=== PATIENT | female | born 1945 | race Caucasian/White ===

== ENCOUNTER 2020-03-10 10:37 | Outpatient (CLI) | payer OTHER, SELFPAY ==
--- NOTE | ~2020-03-10 | MM_ITS ---
EXAMINATION: MM screening [facility] BI w cathy HISTORY: Screening mammogram TECHNIQUE: Craniocaudal and mediolateral oblique 3-D tomosynthesis images were obtained and synthetic 2-D images were generated. CAD analysis was submitted and interpreted. COMPARISON: 01/02/2019, 12/25/2018, 12/07/2017, 12/05/2016 BREAST PARENCHYMAL COMPOSITION: The breasts are heterogeneously dense, which may obscure small masses . FINDINGS: There is no evidence of suspicious mass, calcification, or architectural distortion to sugg est malignancy in either breast. There has been no suspicious interval change. IMPRESSION: 1. No mammographic evidence of malignancy. 2. Recommend routine screening mammography in one year. BI-RADS Category 1: Negative Reviewed, dictated and finalized at location A.
== END 2020-03-10 10:38 | disposition home or self-care (01) ==
LOC: ANHIMG 10:39
PROVIDERS: PCP Family Medicine; Visit Provider Family Medicine
DX: Z12.31 Encounter for screening mammogram for malignant neoplasm of breast (principal)
CPT/HCPCS: 77063; 77067

== ENCOUNTER 2020-06-25 08:50 | Outpatient (CLI) | payer OTHER, SELFPAY ==
--- NOTE | ~2020-06-25 | DEXA_ITS ---
Bone Density Report Name: Zara Martinez Age: 74 Sex: Female Ethnicity: White Date of : 1945 Indication: postmenopausal; hysterectomy; Referring Provider: VAMSI MARTINI Study: Bone densitometry was performed. Exam Date: June 25, 2020 Accession number: [id number] Bone Density: Region BMD T-score Z-score Classification AP Spine (L1, L4) 0.920 -1.1 1.4 Osteopenia Femoral Neck (Left) 0.593 -2.3 -0.2 Osteopenia Total Hip (Left) 0.781 -1.3 0.5 Osteopenia Total Hip Bilateral Avg 0.738 -1.7 0.2 Osteopenia Femoral Neck (Right) 0.590 -2.3 -0.2 Osteopenia Total Hip (Right) 0.694 -2.0 -0.2 Osteopenia World Health Organization criteria for BMD impression classify patients as: Normal (T-score at or above -1.0), Osteopenia (T-score between -1.0 and -2.5), or Osteoporosis (T-score at or below -2.5). 10-year Fracture Risk(1): Major Osteoporotic Fracture 15% Hip Fracture 4.3% Reported Risk Factors: [place] (), Neck BMD=0.590, BMI=26.4 (1) FRAX(R) Version 3.08. Fracture probability calculated for an untreated patient. Fracture probability may be lower if the patient has received treatment. Clinical Information Provided by Patient: Has used the following medications: Calcium Has the following medical conditions: Hysterectomy Patient maximum height was 67 Menopause Age: 28 No regular weight bearing exercise Does not regularly consume dairy products Drinks caffeinated beverages Onset of menses at age 15 Number of children 1 Impression: The patient has low bone mass, based on the Left Femoral Neck T-score. The patient has an estimated ten-year risk of hip fracture of 4.3% and an estimated ten-year risk of major fracture of 15%, based on the WHO FRAX algorithm. Discussion: BONE DENSITY IS LOW AT ONE OR MORE SKELETAL SITES. THE PATIENT'S BMD AND CLINICAL RISK FACTORS CONTRIBUTE TO THIS PATIENT'S INCREASED RISK OF FRACTURE. This patient's lowest T-score is low at one or more skeletal sites. It meets the World Health Organization's (WHO) criteria for ?low bone mass? (T-score between -1.0 and -2.5). The patient's 10-year risk of hip fracture as calculated by FRAX exceeds the threshold where pharmacological therapy is recommended by the National Osteoporosis Foundation (NOF). However, all treatment decisions require clinical judgment and consideration of individual patient factors, including patient preferences, comorbidities, previous drug use, risk factors not captured in the FRAX model (e.g., frailty, falls, vitamin D deficiency, increased bone turnover, interval significant decline in bone density) and possible under or overestimation of fracture risk by FRAX. The patient should follow a healthful lifestyle (good nutrition with adequate calcium and vitamin D, and appropriate weight-bearing exercise).
== END 2020-06-25 08:51 | disposition home or self-care (01) ==
PROVIDERS: PCP Family Medicine; Visit Provider Physician Assistant
DX: Z78.0 Asymptomatic menopausal state (principal); M85.88 Other specified disorders of bone density and structure, other site; M85.852 Other specified disorders of bone density and structure, left thigh; M85.851 Other specified disorders of bone density and structure, right thigh
CPT/HCPCS: 77080

== ENCOUNTER → 2020-11-06 10:09 | Outpatient (CLI) | payer OTHER, SELFPAY ==
--- NOTE | ~2020-11-06 | US_ITS ---
EXAMINATION: US pelvic complete w TV DATE: 11/06/2020 10:37 INDICATION: Left lower quadrant abdominal pain. TECHNIQUE: Multiple transabdominal and endovaginal sonographic images of the pelvis were obtained. COMPARISON: None. FINDINGS: Bladder is normal. The uterus and bilateral ovaries are not visualized with the patient reportedly st atus post prior hysterectomy and right oophorectomy. Shadowing loops of bowel scattered throughout th e visualized pelvis. There is no free fluid in the pelvis. IMPRESSION: 1. Nonvisualized uterus and bilateral ovaries, the uterus and right ovary reportedly surgically absen t and the left ovary likely obscured by shadowing bowel gas. Reviewed, dictated and finalized at location A. IMPRESSION: 1. Nonvisualized uterus and bilateral ovaries, the uterus and right ovary repor tedly surgically absent and the left ovary likely obscured by shadowing bowel g as.
== END ==
PROVIDERS: PCP Family Medicine; Visit Provider Family Medicine
DX: R10.2 Pelvic and perineal pain (principal); R10.32 Left lower quadrant pain; Z90.710 Acquired absence of both cervix and uterus; Z90.721 Acquired absence of ovaries, unilateral
CPT/HCPCS: 76830; 76856

== ENCOUNTER 2021-03-22 09:25 | Outpatient (CLI) | payer OTHER, SELFPAY ==
--- NOTE | ~2021-03-22 | MM_ITS ---
EXAMINATION: MM screening [facility] BI w cathy HISTORY: Screening TECHNIQUE: Craniocaudal and mediolateral oblique 3-D tomosynthesis images were obtained and synthetic 2-D images were generated. CAD analysis was submitted and interpreted. COMPARISON: Comparison to multiple prior studies sequentially, with oldest reviewed study dated 12/05. BREAST PARENCHYMAL COMPOSITION: Breast composed of scattered areas of fibroglandular density. FINDINGS: There is no evidence of suspicious mass, calcification, or architectural distortion to sugg est malignancy in either breast. There has been no suspicious interval change. IMPRESSION: 1. No mammographic evidence of malignancy. 2. Recommend routine screening mammography in one year. BI-RADS Category 1: Negative Reviewed, dictated and finalized at location A.
== END 2021-03-22 09:26 | disposition home or self-care (01) ==
PROVIDERS: PCP Family Medicine; Visit Provider Nurse Practitioner Family
DX: Z12.31 Encounter for screening mammogram for malignant neoplasm of breast (principal)
CPT/HCPCS: 77063; 77067

== ENCOUNTER 2022-04-04 09:15 | Outpatient (CLI) | payer OTHER, SELFPAY ==
--- NOTE | ~2022-04-04 | US_ITS ---
EXAMINATION: US aorta [facility] scr[facility] DATE: 04/04/2022 10:21 CDT INDICATION: High cholesterol. Hypertension. Previous myocardial infarction. TECHNIQUE: Grayscale, color Doppler, and pulsed Doppler images of the aorta and common iliac arteries were obtained. COMPARISON: None. FINDINGS: There is moderate atherosclerosis of the aorta. The proximal aorta measures 1.9 cm greatest sagittal dimension. The mid aorta measures 1.5 cm greatest sagittal dimension. The distal aorta measures 1.6 c m greatest sagittal dimension. The right common internal iliac artery measures 0.7 cm. The left commo n iliac artery measures .7 cm. IMPRESSION: 1. Atherosclerosis of the abdominal aorta without aneurysm. Reviewed, dictated and finalized at location B.
== END 2022-04-04 09:16 | disposition home or self-care (01) ==
PROVIDERS: PCP Family Medicine; Visit Provider Internal Medicine Cardiovascular Disease
DX: I25.10 Atherosclerotic heart disease of native coronary artery without angina pectoris (principal); Z87.891 Personal history of nicotine dependence; Z13.6 Encounter for screening for cardiovascular disorders; I71.40 Abdominal aortic aneurysm, without rupture, unspecified
CPT/HCPCS: 76706

== ENCOUNTER 2022-05-17 09:45 | Outpatient (CLI) | payer OTHER, SELFPAY ==
--- NOTE | ~2022-05-17 | MM_ITS ---
EXAMINATION: MM screening [facility] BI w cathy HISTORY: Screening mammogram TECHNIQUE: Craniocaudal and mediolateral oblique 3-D tomosynthesis images were obtained and synthetic 2-D images were generated. CAD analysis was submitted and interpreted. COMPARISON: 03/22/2021, 03/10/2020, 01/02/2019, 12/25/2018 BREAST PARENCHYMAL COMPOSITION: The breasts are heterogeneously dense, which may obscure small masses . FINDINGS: No suspicious mass, calcification, or architectural distortion are identified in either toan ast to suggest malignancy. There has been no suspicious interval change. IMPRESSION: 1. No mammographic evidence of malignancy. 2. Recommend routine screening mammography in one year. BI-RADS Category 1: Negative Reviewed, dictated and finalized at location A. 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
[2022-05-17 10:03] LABS: Hematocrit 39.5 % (37.0-47.0); Hemoglobin 13.1 g/dL (12.0-15.0); Mean Corpuscular HGB Conc 33.2 g/dl (32-36); Mean Corpuscular Hemoglobin 32.6 pg (26-34); Mean Corpuscular Volume 98.3 fl (80-100); Mean Platelet Volume 8.9 fl (7.4-10.4); Platelet Count Result 298 k/mm3 (150-375); Red Blood Count 4.02 M/mm3 (4.2-5.4); Red Cell Distribution Width 13.2 % (11.5-14.5); White Blood Count 7.1 K/mm3 (4.5-10.0)
[2022-05-17 10:15] LABS: Alanine Aminotransferase 22 U/L (6-35); Albumin Level 4.2 g/dL (3.5-5.1); Alkaline Phosphatase 63 U/L (38-126); Anion Gap 5 mmol/L (8-16); Aspartate Amino Transferase 31 U/L (14-36); Bilirubin,Total 0.5 mg/dL (0.2-1.3); Blood Urea Nitrogen 9 mg/dL (7-17); Calcium 8.9 mg/dL (8.4-10.2); Carbon Dioxide 31 mmol/L (22-30); Chloride 95 mmol/L (98-107); Cholesterol 123 mg/dL (0-200); Estimated Glomerular Filt Rate > 60; Glucose 98 mg/dL (65-110); HDL Direct 58 mg/dL; Potassium 3.8 mmol/L (3.4-5.0); Sodium 131 mmol/L (137-145); Triglycerides 67 mg/dL (<150)
[2022-05-17 10:26] LABS: LDL Cholesterol Direct 46 mg/dL
[2022-05-17 10:33] LABS: Hemoglobin A1C 6.5 % (<5.7)
[2022-05-17 11:26] LABS: Bacteria Urine Trace /hpf; Mucus Urine Rare /lpf; Squamous Epithelial Cell Urine Few /hpf (Few); WBC Urine 0-3 /hpf (0-3)
[2022-05-17 11:30] LABS: Creatinine Urine 33.6 mg/dL
[2022-05-17 11:31] LABS: Appearance Urine Clear (Clear); Bilirubin Urine Negative (Negative); Blood Urine Trace-intact (Negative); Color Urine Yellow (Yellow); Glucose Urine UA Negative (Negative); Ketones Urine Negative (Negative); Leukocyte Esterase Ur 1+ LEU/UL (NEGATIVE); Nitrate Urine Negative (Negative); Protein Urine Negative (Negative); Specific Grav Ur 1.015 (1.001-1.035); Urobilinogen Urine 0.2 mg/dL (<2.0)
[2022-05-17 11:32] LABS: Add Urine Microscopic? YES
[2022-05-17 13:31] LABS: Microalbumin Urine Random < 6.0 mg/L (0-16.7)
== END 2022-05-17 09:46 | disposition home or self-care (01) ==
PROVIDERS: Physician Assistant; PCP Family Medicine; Visit Provider Family Medicine
DX: Z12.31 Encounter for screening mammogram for malignant neoplasm of breast (principal); E78.00 Pure hypercholesterolemia, unspecified; I25.10 Atherosclerotic heart disease of native coronary artery without angina pectoris; N18.30 Chronic kidney disease, stage 3 unspecified; E03.9 Hypothyroidism, unspecified; I13.10 Hypertensive heart and chronic kidney disease without heart failure, with stage 1 through stage 4 chronic kidney disease, or unspecified chronic kidney disease; E11.22 Type 2 diabetes mellitus with diabetic chronic kidney disease
CPT/HCPCS: 36415; 77063; 77067; 80053; 80061; 81001; 82043; 83036; 84443; 85027

== ENCOUNTER 2022-10-13 09:39 | Outpatient (CLI) | payer OTHER, SELFPAY ==
--- NOTE | ~2022-10-13 | DEXA_ITS ---
Bone Density Report Name: ZACHARIAH GALICIA Age: 76 Sex: Female Ethnicity: White Date of : 1945 Indication: osteopenia; hysterectomy; postmenopausal Referring Provider: LOPEZ HUTSON Study: Bone densitometry was performed. Exam Date: October 13, 2022 Accession number: [id number] Bone Density: Region BMD T-score Z-score Classification AP Spine(L1, L4) 0.923 -1.0 1.5 Normal Femoral Neck (Left) 0.546 -2.7 -0.5 Osteoporosis Total Hip (Left) 0.696 -2.0 -0.1 Osteopenia Femoral Neck (Right) 0.559 -2.6 -0.4 Osteoporosis Total Hip (Right) 0.647 -2.4 -0.5 Osteopenia Total Hip Mean 0.671 -2.2 -0.3 Osteopenia World Health Organization criteria for BMD impression classify patients as: Normal (T-score at or above -1.0), Osteopenia (T-score between -1.0 and -2.5), or Osteoporosis (T-score at or below -2.5). 10-year Fracture Risk: FRAX not reported because: Some T-score for Spine Total or Hip Total or Femoral Neck at or below -2.5 Previous Exams: Region Exam Age BMD T-score BMD Change BMD Change Date g/cm2 vs Baseline vs Previous AP Spine (L1,L4) 10/13/2022 76 0.923 -1.0 0.003 (0.3%) 0.003 (0.3%) 06/25/2020 74 0.920 -1.1 Total Hip(Left) 10/13/2022 76 0.696 -2.0 -0.085 (-10.9% -0.085 (-10.9% 06/25/2020 74 0.781 -1.3 Total Hip(Right) 10/13/2022 76 0.647 -2.4 -0.048 (-6.8%) -0.048 (-6.8%) 06/25/2020 74 0.694 -2.0 *Denotes significance at 95% confidence level, LSC for AP Spine = 0.022 g/cm2, LSC for Total Hip = 0.027 g/cm2 Clinical Information Provided by Patient: Has used the following medications: Calcium Has the following medical conditions: Hysterectomy Patient maximum height was 67 Menopause Age: 28 No regular weight bearing exercise Does not regularly consume dairy products Drinks caffeinated beverages Onset of menses at age 15 Number of children 1 Impression: The patient has osteoporosis, based on the Left Femoral Neck T-score. The BMD for the Total Hip(Left) decreased, changing by -10.9% since the last DXA exam. The BMD for the Total Hip(Right) decreased, changing by -6.8% since the last DXA exam. Discussion: INCREASED RISK OF FRACTURE. BONE DENSITY IS UNDESIRABLY LOW AT ONE OR MORE SKELETAL SITES, CONSISTENT WITH POSTMENOPAUSAL OSTEOPOROSIS. This patient's lowest T-score meets the World Health Organization's (WHO) criteria for osteoporosis at one or more sites (T-score -2.5 or below). In untreated patients, t
== END 2022-10-13 09:40 | disposition home or self-care (01) ==
LOC: ANHIMG 09:42
PROVIDERS: PCP Family Medicine; Visit Provider Family Medicine
DX: Z78.0 Asymptomatic menopausal state (principal); M81.0 Age-related osteoporosis without current pathological fracture; M85.852 Other specified disorders of bone density and structure, left thigh; M85.851 Other specified disorders of bone density and structure, right thigh
CPT/HCPCS: 77080

== ENCOUNTER 2022-11-21 08:08 | Outpatient (CLI) | payer OTHER, SELFPAY ==
[2022-11-21 09:16] LABS: Alanine Aminotransferase 22 U/L (6-35); Alkaline Phosphatase 62 U/L (38-126); Anion Gap 3 mmol/L (8-16); Aspartate Amino Transferase 31 U/L (14-36); Bilirubin,Total 0.6 mg/dL (0.2-1.3); Blood Urea Nitrogen 8 mg/dL (7-17); Calcium 8.9 mg/dL (8.4-10.2); Carbon Dioxide 33 mmol/L (22-30); Chloride 96 mmol/L (98-107); Estimated Glomerular Filt Rate > 60; Glucose 93 mg/dL (65-110); Potassium 3.9 mmol/L (3.4-5.0); Sodium 132 mmol/L (137-145)
[2022-11-21 09:44] LABS: Thyroid Stimulating Hormone 0.445 uIU/mL (0.465-4.680)
[2022-11-21 10:38] LABS: Hemoglobin A1C 5.9 % (<5.7)
== END 2022-11-21 08:09 | disposition home or self-care (01) ==
PROVIDERS: PCP Family Medicine; Visit Provider Physician Assistant
DX: I13.10 Hypertensive heart and chronic kidney disease without heart failure, with stage 1 through stage 4 chronic kidney disease, or unspecified chronic kidney disease (principal); E03.9 Hypothyroidism, unspecified; E11.29 Type 2 diabetes mellitus with other diabetic kidney complication; N18.30 Chronic kidney disease, stage 3 unspecified
CPT/HCPCS: 36415; 80053; 83036; 84443

== ENCOUNTER 2023-01-31 07:36 | Outpatient (CLI) | payer OTHER, SELFPAY | END 2023-01-31 07:37 | disposition home or self-care (01) | LOC: ANHLAB 07:37 | PROVIDERS: PCP Family Medicine; Visit Provider Physician Assistant | DX: E03.9 Hypothyroidism, unspecified (principal) | CPT/HCPCS: 36415; 84443 ==

== ENCOUNTER 2023-03-23 09:28 | Outpatient (CLI) | payer OTHER, SELFPAY ==
[2023-03-23 10:25] LABS: Cholesterol 127 mg/dL (0-200); HDL Direct 56 mg/dL; Triglycerides 58 mg/dL (<150)
[2023-03-23 10:35] LABS: LDL Cholesterol Direct 54 mg/dL
== END 2023-03-23 09:29 | disposition home or self-care (01) ==
PROVIDERS: PCP Family Medicine; Referring Provider Physician Assistant; Visit Provider Internal Medicine Cardiovascular Disease
DX: E78.2 Mixed hyperlipidemia (principal)
CPT/HCPCS: 36415; 80061; 84443

== ENCOUNTER → 2023-04-18 08:27 | Outpatient (CLI) | payer OTHER, SELFPAY ==
--- NOTE | ~2023-04-18 | XR_ITS ---
EXAMINATION:XR cervical spine min 6V DATE: 04/18/2023 09:05 INDICATION: Neck pain TECHNIQUE: AP, lateral in neutral, flexion, extension, lateral swimmers and odontoid views of the cer vical spine are provided. COMPARISON: None FINDINGS: There are 2 mm of retrolisthesis of C5 on C6. There are 2 mm of anterolisthesis of C7 on T1 . There is no hypermobility with flexion or extension. The odontoid process is intact. No fracture is identified. The vertebral body heights are maintained. There is moderate loss of intervertebral disc space height at C4-5 and C5-6. There is multilevel moderate facet and uncovertebral joint osteoarthr itis. IMPRESSION: 1. Moderate cervical spondylosis without acute findings. Reviewed, dictated and finalized at location L. 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
== END ==
PROVIDERS: PCP Physician Assistant; Visit Provider Physician Assistant
DX: M43.02 Spondylolysis, cervical region (principal)
CPT/HCPCS: 72052

== ENCOUNTER 2023-06-19 09:26 | Outpatient (CLI) | payer OTHER, SELFPAY ==
[2023-06-19 09:43] LABS: Basophils Absolute Auto 0.1 K/mm3 (0.0-0.1); Basophils Percent Auto 0.7 % (0.2-1.2); Eosinophils Absolute Auto 0.3 K/mm3 (0-0.3); Eosinophils Percent Auto 3.7 % (0-4.4); Hematocrit 40.8 % (37.0-47.0); Hemoglobin 13.4 g/dL (12.0-15.0); Immature Granulocyte Absolute 0.02 K/mm3 (0.00-0.031); Immature Granulocyte Percent A 0.2 % (0-0.5); Lymphocytes Absolute Auto 2.33 K/mm3 (0.9-3.2); Lymphocytes Percent Auto 28.4 % (18.3-44.2); Mean Corpuscular HGB Conc 32.8 g/dl (32-36); Mean Corpuscular Hemoglobin 32.8 pg (26-34); Mean Corpuscular Volume 99.8 fl (80-100); Mean Platelet Volume 8.7 fl (7.4-10.4); Monocytes Absolute Auto 0.7 K/mm3 (0.1-0.6); Monocytes Percent Auto 8.3 % (2.6-8.5); Neutrophils Absolute Auto 4.8 K/mm3 (1.3-6.7); Neutrophils Percent Auto 58.7 % (45.5-73.1); Platelet Count Result 301 k/mm3 (150-375); Red Blood Count 4.09 M/mm3 (4.2-5.4); Red Cell Distribution Width 12.8 % (11.5-14.5); White Blood Count 8.2 K/mm3 (4.5-10.0)
[2023-06-19 09:50] LABS: Appearance Urine Clear (Clear); Bacteria Urine None Seen /hpf; Bilirubin Urine Negative (Negative); Color Urine Yellow (Yellow); Glucose Urine UA Negative (Negative); Ketones Urine Negative (Negative); Leukocyte Esterase Ur Negative LEU/UL (NEGATIVE); Nitrate Urine Negative (Negative); Non Pathogenic Casts 0-2; Protein Urine Negative (Negative); Specific Grav Ur 1.012 (1.001-1.035); Squamous Epithelial Cell Urine None seen /hpf (Few); WBC Urine 0-5 /hpf (0-3); pH Urine 6.5 (5.0-9.0)
[2023-06-19 09:53] LABS: Alanine Aminotransferase 19 U/L (6-35); Albumin Level 3.9 g/dL (3.5-5.1); Alkaline Phosphatase 61 U/L (38-126); Anion Gap 6 mmol/L (8-16); Aspartate Amino Transferase 28 U/L (14-36); Bilirubin,Total 0.5 mg/dL (0.2-1.3); Blood Urea Nitrogen 15 mg/dL (7-17); Calcium 8.9 mg/dL (8.4-10.2); Carbon Dioxide 30 mmol/L (22-30); Chloride 92 mmol/L (98-107); Estimated Glomerular Filt Rate > 60; Glucose 197 mg/dL (65-110); Potassium 3.8 mmol/L (3.4-5.0); Sodium 128 mmol/L (137-145)
[2023-06-19 09:56] LABS: Add Urine Microscopic? YES
[2023-06-19 10:24] LABS: Thyroid Stimulating Hormone 0.652 uIU/mL (0.465-4.680)
[2023-06-19 10:49] LABS: Creatinine Urine 54.5 mg/dL
[2023-06-19 11:09] LABS: Microalbumin Urine Random < 6.0 mg/L (0-16.7)
[2023-06-19 11:10] LABS: MALB Creatinine Ratio < 11.0 mg/g (0-30)
[2023-06-19 11:50] LABS: Hemoglobin A1C 6.3 % (<5.7)
== END 2023-06-19 09:27 | disposition home or self-care (01) ==
PROVIDERS: PCP Family Medicine; Visit Provider Physician Assistant
DX: I25.10 Atherosclerotic heart disease of native coronary artery without angina pectoris (principal); I13.10 Hypertensive heart and chronic kidney disease without heart failure, with stage 1 through stage 4 chronic kidney disease, or unspecified chronic kidney disease; E03.9 Hypothyroidism, unspecified; E11.29 Type 2 diabetes mellitus with other diabetic kidney complication
CPT/HCPCS: 36415; 80053; 81001; 82043; 83036; 84443; 85025

== ENCOUNTER 2023-08-10 10:02 | Outpatient (CLI) | payer OTHER, SELFPAY ==
[2023-08-10 11:01] LABS: Appearance Urine Clear (Clear); Bacteria Urine None Seen /hpf; Bilirubin Urine Negative (Negative); Blood Urine Negative (Negative); Color Urine Yellow (Yellow); Glucose Urine UA Negative (Negative); Ketones Urine Negative (Negative); Leukocyte Esterase Ur 1+ LEU/UL (NEGATIVE); Need Manual Microscopic Reviewed; Nitrate Urine Negative (Negative); Non Pathogenic Casts 0-2; Protein Urine Negative (Negative); RBC Urine 0-2 /hpf (0-2); Specific Grav Ur 1.008 (1.001-1.035); Squamous Epithelial Cell Urine None seen /hpf (Few); Urobilinogen Urine 0.2 mg/dL (<2.0); WBC Urine 0-5 /hpf (0-3)
[2023-08-10 11:02] LABS: Add Urine Microscopic? YES
== END 2023-08-10 10:03 | disposition home or self-care (01) ==
LOC: ANHLAB 10:05
PROVIDERS: PCP Family Medicine; Visit Provider Physician Assistant
DX: R31.9 Hematuria, unspecified (principal)
CPT/HCPCS: 81001; 87086; 87088

== ENCOUNTER 2023-08-29 13:43 | Outpatient (CLI) | payer OTHER, SELFPAY ==
--- NOTE | ~2023-08-29 | XR_ITS ---
Right Knee Technique: AP, lateral, and sunrise views were obtained. Clinical History: Injury Findings: No fracture or dislocation is seen. Osseous alignment is anatomic. Joint spaces are preserv ed without degenerative or erosive change. Soft tissues are unremarkable. No joint effusion is seen. Impression: Unremarkable right knee radiographs. Reviewed, dictated and finalized at location . Impression: Unremarkable right knee radiographs.
== END 2023-08-29 13:44 | disposition home or self-care (01) ==
PROVIDERS: PCP Family Medicine; Visit Provider Physician Assistant
DX: S89.91XA Unspecified injury of right lower leg, initial encounter (principal); X58.XXXA Exposure to other specified factors, initial encounter
CPT/HCPCS: 73562

== ENCOUNTER 2023-09-20 15:26 | Outpatient (CLI) | payer OTHER, SELFPAY ==
--- NOTE | ~2023-09-20 | US_ITS ---
EXAMINATION:US venous doppler LE BI INDICATION:Leg pain and swelling TECHNIQUE: Multiple grayscale, color flow and Doppler images of the right and left lower extremity de ep venous systems were obtained and reviewed. COMPARISON:No prior studies for comparison. FINDINGS: The common femoral, superficial femoral and popliteal veins demonstrate normal respiratory variation, augmentation and compressibility. Color flow is also seen within the posterior tibial, pe roneal, greater saphenous and profunda veins. IMPRESSION: 1: No lower extremity deep venous thrombosis. Reviewed, dictated and finalized at location A.
== END 2023-09-20 15:27 | disposition home or self-care (01) ==
LOC: ANHIMG 15:29
PROVIDERS: PCP Family Medicine; Visit Provider Physician Assistant
DX: M79.89 Other specified soft tissue disorders (principal)
CPT/HCPCS: 93970

== ENCOUNTER 2023-10-10 09:52 | Outpatient (CLI) | payer OTHER, SELFPAY ==
--- NOTE | ~2023-10-10 | MM_ITS ---
EXAMINATION: MM screening [facility] BI w cathy HISTORY: Screening mammogram TECHNIQUE: Craniocaudal and mediolateral oblique 3-D tomosynthesis images were obtained and synthetic 2-D images were generated. CAD analysis was submitted and interpreted. COMPARISON: 05/17/2022, 03/22/2021 bilateral screening mammogram examinations BREAST PARENCHYMAL COMPOSITION: The breasts are heterogeneously dense, which may obscure small masses . FINDINGS: There is no evidence of suspicious mass, calcification, or architectural distortion to sugg est malignancy in either breast. There has been no suspicious interval change. IMPRESSION: 1. No mammographic evidence of malignancy. 2. Recommend routine screening mammography in one year. BI-RADS Category 1: Negative Reviewed, dictated and finalized at location A.
== END 2023-10-10 09:53 | disposition home or self-care (01) ==
PROVIDERS: PCP Family Medicine; Visit Provider Physician Assistant
DX: Z12.31 Encounter for screening mammogram for malignant neoplasm of breast (principal)
CPT/HCPCS: 77063; 77067

== ENCOUNTER 2023-10-30 08:37 | Outpatient (CLI) | payer OTHER, SELFPAY ==
[2023-10-30 10:05] LABS: Hemoglobin A1C 5.9 % (<5.7)
[2023-10-30 10:08] LABS: Alanine Aminotransferase 24 U/L (6-35); Albumin Level 4.3 g/dL (3.5-5.1); Alkaline Phosphatase 65 U/L (38-126); Anion Gap 4 mmol/L (4-12); Aspartate Amino Transferase 37 U/L (14-36); Bilirubin,Total 0.6 mg/dL (0.2-1.3); Blood Urea Nitrogen 11 mg/dL (7-17); Calcium 9.1 mg/dL (8.4-10.2); Carbon Dioxide 30 mmol/L (22-30); Chloride 95 mmol/L (98-107); Estimated Glomerular Filt Rate > 60; Glucose 95 mg/dL (65-110); Sodium 129 mmol/L (137-145)
== END 2023-10-30 08:38 | disposition home or self-care (01) ==
PROVIDERS: PCP Family Medicine; Visit Provider Physician Assistant Medical
DX: E03.9 Hypothyroidism, unspecified (principal); E11.29 Type 2 diabetes mellitus with other diabetic kidney complication; I13.10 Hypertensive heart and chronic kidney disease without heart failure, with stage 1 through stage 4 chronic kidney disease, or unspecified chronic kidney disease; N18.30 Chronic kidney disease, stage 3 unspecified; E87.1 Hypo-osmolality and hyponatremia
CPT/HCPCS: 36415; 80053; 83036; 84443

== ENCOUNTER 2024-02-28 12:21 | Emergency (ER) | payer OTHER, SELFPAY ==
--- NOTE | ~2024-02-28 | XR_ITS ---
EXAMINATION: XR shoulder RT min 2V DATE: 02/28/2024 12:55 INDICATION: Right shoulder pain, swelling and limited range of motion post fall TECHNIQUE: AP internally and externally rotated, AP oblique externally rotated and transscapular Y vi ews of the right shoulder were obtained. COMPARISON: None FINDINGS: There is a fracture across the surgical neck of the proximal right humerus. The humeral head appears rotated relative to the glenoid as with abduction and elevation of the arm. The humeral diaphysis is proximally migrated and angulated medially and posteriorly relative to the humeral head. There is mil d right glenohumeral and acromioclavicular osteoarthritis. Visualized portion of the lungs are clear. IMPRESSION: 2 part fracture at the surgical neck of the proximal right humerus. Reviewed, dictated and finalized at location B.
[2024-02-28 12:31] VITALS: PULSE 64; RESP 16; TEMP 36.4; O2SAT 98
--- NOTE | 2024-02-28 13:44 | ED.UPPEXIN ---
HPI - Extremity Injury (Upper) General Chief Complaint: Extremity Injury, Upper Stated Complaint: fall, right shoulder pain Time Seen by Provider: 02/28/24 12:37 History of Present Illness HPI narrative: Patient is a 78-year-old female who presents ER with right shoulder pain. She was leaning over turning off a light when she slipped and fell landing directly on her shoulder. Has pain with attempts of range of motion. No numbness or tingling. She did not hit her head nor did she lose consciousness. She is not on any blood thinning medications. Related Data Home Medications Medication Instructions Recorded Confirmed acetaminophen 500 mg tablet 500 mg PO Q6H PRN 07/02/19 01/30/24 (Tylenol Extra Strength) rosuvastatin 40 mg tablet (Crestor) 40 mg PO DAILY 07/02/19 01/30/24 amlodipine 5 mg tablet 5 mg PO DAILY 07/23/19 01/30/24 aspirin 81 mg tablet,delayed 81 mg PO DAILY 07/23/19 01/30/24 release calcium carbonate (Calcium 600) 600 mg PO BID 07/23/19 01/30/24 Allergies Allergy/AdvReac Type Severity Reaction Status Date / Time atorvastatin AdvReac Unknown Other Verified 02/28/24 12:48 Review of Systems Constitutional: Constitutional: Reports no additional constitutional complaints Musculoskeletal: Musculoskeletal: Reports arthralgias, Reports joint swelling and Denies muscle cramps Integumentary/Breasts: Skin/Breast: Reports system reviewed and no additional complaints, except as docu Neurologic: Reports system reviewed and no additional complaints, except as documented [facility] Past Medical History Medical History CAD (coronary artery disease) Cataracts, bilateral Chronic kidney disease, stage 3 (moderate) GERD (gastroesophageal reflux disease) H/O: HTN (hypertension) Hypercholesteremia Hypertensive heart and chronic kidney disease without heart failure, with stage 1 through stage 4 chronic kidney disease, or unspecified chronic kidney disease Hypothyroidism, unspecified [place] (myocardial infarction) Psoriasis Pure hypercholesterolemia, unspecified Type 2 diabetes mellitus with other diabetic kidney complication Surgical History Surgical History History of hysterectomy Hx of bilateral cataract extraction Hx of cardiac cath with 1 stent. Family History Family History Father Cerebrovascular accident Mother Family history of type 2 diabetes mellitus Social History Social History Years smoked: 20 Smoking status: Former smoker Tobacco type: cigarettes Second hand tobacco smoke exposure: Yes Smoking end date: 06/12/98 Alcohol intake: never Substance use: never Substance use type: does not use Living arrangements: with family Occupation/Education: retired Gender identity (if verbalized by the patient): Female Sexual Orientation (if Verbalized by the Patient): Straight or Heterosexual Exam Narrative: GENERAL: Well-appearing, well-nourished, and in no acute distress. HEAD: Normocephalic, atraumatic. ENT: Mucous membranes moist. CHEST: Clear to auscultation. No respiratory distress. HEART: Regular rate and rhythm. Normal peripheral pulses. EXTREMITIES: Right upper extremity with tenderness at the right shoulder with limited range of motion due to pain. Unremarkable right upper extremity distal to the shoulder. NEURO: No focal deficits. Alert and oriented x3. PSYCH: Normal mood and affect. Course Course Emergency Course: Discussed with Ortho. Placed in shoulder immobilizer. Pain control for home. Discharge. Patient where diagnosis and treatment plan and has seen her films. Vital Signs Vital signs: Vital Signs Temperature 97.6 F 02/28/24 12:31 Pulse Rate 64 02/28/24 12:31 Respiratory Rate 16 02/28/24 12:31 Pulse Oximetry 98 02/28/24 12:31 Oxy
== END 2024-02-28 14:28 | disposition home or self-care (01) ==
PROVIDERS: Emergency Provider Emergency Medicine; PCP Family Medicine
DX: S42.211A Unspecified displaced fracture of surgical neck of right humerus, initial encounter for closed fracture (principal); W19.XXXA Unspecified fall, initial encounter; Z79.82 Long term (current) use of aspirin; I25.10 Atherosclerotic heart disease of native coronary artery without angina pectoris; N18.30 Chronic kidney disease, stage 3 unspecified; K21.9 Gastro-esophageal reflux disease without esophagitis; I12.9 Hypertensive chronic kidney disease with stage 1 through stage 4 chronic kidney disease, or unspecified chronic kidney disease; E03.9 Hypothyroidism, unspecified; E78.00 Pure hypercholesterolemia, unspecified; E11.22 Type 2 diabetes mellitus with diabetic chronic kidney disease; I25.2 Old myocardial infarction; Z87.891 Personal history of nicotine dependence
CPT/HCPCS: 73030; 99284

== ENCOUNTER 2024-04-11 09:08 | Outpatient (CLI) | payer OTHER, SELFPAY ==
[2024-04-11 09:53] LABS: Basophils Absolute Auto 0.1 K/mm3 (0.0-0.1); Eosinophils Absolute Auto 0.3 K/mm3 (0-0.3); Eosinophils Percent Auto 3.7 % (0-4.4); Hematocrit 40.9 % (37.0-47.0); Hemoglobin 13.7 g/dL (12.0-15.0); Immature Granulocyte Absolute 0.05 K/mm3 (0.00-0.031); Immature Granulocyte Percent A 0.6 % (0-0.5); Lymphocytes Absolute Auto 2.76 K/mm3 (0.9-3.2); Lymphocytes Percent Auto 31.7 % (18.3-44.2); Mean Corpuscular HGB Conc 33.5 g/dl (32-36); Mean Corpuscular Hemoglobin 33.5 pg (26-34); Mean Platelet Volume 8.6 fl (7.4-10.4); Monocytes Percent Auto 11.3 % (2.6-8.5); Neutrophils Absolute Auto 4.5 K/mm3 (1.3-6.7); Neutrophils Percent Auto 51.7 % (45.5-73.1); Platelet Count Result 350 k/mm3 (150-375); Red Blood Count 4.09 M/mm3 (4.2-5.4); Red Cell Distribution Width 13.7 % (11.5-14.5); White Blood Count 8.7 K/mm3 (4.5-10.0)
[2024-04-11 10:14] LABS: Alanine Aminotransferase 32 U/L (6-35); Albumin Level 4.1 g/dL (3.5-5.1); Alkaline Phosphatase 61 U/L (38-126); Anion Gap 6 mmol/L (4-12); Aspartate Amino Transferase 49 U/L (14-36); Bilirubin,Total 0.7 mg/dL (0.2-1.3); Blood Urea Nitrogen 16 mg/dL (7-17); Calcium 9.1 mg/dL (8.4-10.2); Carbon Dioxide 28 mmol/L (22-30); Chloride 93 mmol/L (98-107); Estimated Glomerular Filt Rate > 60; Glucose 96 mg/dL (65-110); Potassium 4.3 mmol/L (3.4-5.0); Sodium 127 mmol/L (137-145)
[2024-04-11 10:24] LABS: Hemoglobin A1C 6.2 % (<5.7)
[2024-04-11 10:26] LABS: Iron 96 ug/dL (37-170)
[2024-04-11 10:35] LABS: Percent Iron Saturation 27 % (20-50)
[2024-04-11 12:24] LABS: Folic Acid > 20.0 ng/mL (2.76->20)
== END 2024-04-11 09:09 | disposition home or self-care (01) ==
PROVIDERS: PCP Family Medicine; Visit Provider Physician Assistant
DX: E53.8 Deficiency of other specified B group vitamins (principal); I13.10 Hypertensive heart and chronic kidney disease without heart failure, with stage 1 through stage 4 chronic kidney disease, or unspecified chronic kidney disease; G62.9 Polyneuropathy, unspecified; G25.81 Restless legs syndrome; E03.9 Hypothyroidism, unspecified; E11.22 Type 2 diabetes mellitus with diabetic chronic kidney disease; N18.30 Chronic kidney disease, stage 3 unspecified; I25.10 Atherosclerotic heart disease of native coronary artery without angina pectoris
CPT/HCPCS: 36415; 80053; 82607; 82728; 82746; 83036; 83540; 83550; 84443; 85025

== ENCOUNTER 2024-05-07 08:57 | Outpatient (CLI) | payer OTHER, SELFPAY ==
[2024-05-07 10:30] LABS: Anion Gap 3 mmol/L (4-12); Blood Urea Nitrogen 14 mg/dL (7-17); Calcium 9.3 mg/dL (8.4-10.2); Carbon Dioxide 32 mmol/L (22-30); Chloride 93 mmol/L (98-107); Estimated Glomerular Filt Rate > 60; Glucose 102 mg/dL (65-110); Potassium 4.3 mmol/L (3.4-5.0); Sodium 128 mmol/L (137-145)
== END 2024-05-07 08:58 | disposition home or self-care (01) ==
PROVIDERS: PCP Family Medicine; Visit Provider Physician Assistant
DX: E87.1 Hypo-osmolality and hyponatremia (principal)
CPT/HCPCS: 36415; 80048

== ENCOUNTER 2024-08-30 09:50 | Outpatient (CLI) | payer OTHER, SELFPAY ==
[2024-08-30 10:40] LABS: Anion Gap 7 mmol/L (4-12); Blood Urea Nitrogen 13 mg/dL (7-17); Calcium 9.4 mg/dL (8.4-10.2); Carbon Dioxide 30 mmol/L (22-30); Chloride 94 mmol/L (98-107); Estimated Glomerular Filt Rate > 60; Glucose 111 mg/dL (65-110); Hemoglobin A1C 6.2 % (<5.7); Potassium 4.1 mmol/L (3.4-5.0); Sodium 131 mmol/L (137-145)
[2024-08-30 10:43] LABS: Iron 123 ug/dL (37-170)
[2024-08-30 10:45] LABS: Rheumatoid Factor < 12.0 IU/ML (<12)
[2024-08-30 10:53] LABS: Percent Iron Saturation 35 % (20-50)
--- OUTSIDE RECORDS SUMMARY | 2024-08-30 10:58 | XMS_ITS | Clinical Summary ---
Author Organization [facility] [address] Address [address] [place] [address] Care Team Providers Care Organic Search Lead Name Role Phone Tano Rahman MD Primary Care Provider Allergies No known active allergies Medications famotidine (PEPCID) 40 mg tablet take 1 tablet by oral route every day at bedtime 0 0 5 Active hydroCHLOROthia zide (HYDRODIURIL) 25 mg tablet take 1 tablet by oral route every day 0 0 5 Active aspirin (ASPIR-81) 81 mg tablet take 1 tablet by oral route every day 0 0 5 Active calcium carbonate (CALCIUM 600) 1,500 mg (600 mg of elemental calcium) tablet take 1 by Oral route 2 times every day 0 0 5 Active metoprolol XL (TOPROL-XL) 50 mg 24 hr tablet take 1 tablet by oral route every day 30 6 6 Active levothyroxine (SYNTHROID) 75 mcg tablet Take 1 tablet (75 mcg total) by mouth operations officer before breakfast Active [id number] -Lmfolate-algal 27 mg iron-1.13 mg-581.92 mg capsule Take by mouth Active lisinopriL (PRINIVIL,ZESTR IL) 40 mg tablet Take 1 tablet (40 mg total) by mouth daily 3 Active rosuvastatin (CRESTOR) 40 mg tablet Take 1 tablet (40 mg total) by mouth daily 90 tablet 2 4 Active amLODIPine (NORVASC) 5 mg tablet Take 1 tablet (5 mg total) by mouth daily 90 tablet 2 4 Active ezetimibe (ZETIA) 10 mg tablet Take 1 tablet (10 mg total) by mouth daily 90 tablet 2 4 Active rOPINIRole (REQUIP) 1 mg tablet Take 1 tablet (1 mg total) by mouth 2 (two) times a day 4 Active gabapentin (NEURONTIN) 100 mg capsule Take 2 capsules (200 mg total) by mouth 2 (two) times a day 4 Active Active Problems Problem Noted Date Diagnosed Date History of tobacco abuse 03/29/2022 Screening for AAA (abdominal aortic aneurysm) Mixed hyperlipidemia 09/23/2021 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 S/P coronary artery stent placement 08/23/2017 Dizziness 03/15/2016 Overview (09/22/2016): Dizziness Old myocardial infarction 06/01/2015 Overview (09/22/2016): H/O myocardial infarction of inferior wall, greater than 8 weeks Hypertension 06/01/2015 Overview (09/22/2016): Uncontrolled hypertension Coronary artery disease invo lving [place] coronary artery of [place] heart without angina pectoris 06/01/2015 Overview (09/22/2016): Coronary artery disease involving [place] coronary artery of [place] heart without angina pectoris Resolved Problems Problem Noted Date Diagnosed Date Resolved Date Tobacco use and exposure - finding 06/01/2015 02/22/2021 Overview (09/22/2016): H/O tobacco use, presenting hazards to health Dyslipidemia 06/01/2015 09/23/2021 Overview (09/22/2016): Dyslipidemia History of placement of sten t for coronary artery disease 06/01/2015 08/01/2019 Overview (09/22/2016): S/P coronary artery stent placement Medical History Medical History Date Comments Coronary artery disease Family History Medical History Relation Name Comments Heart disease Father Heart disease; Hypertension Father Hypertension; Heart disease Mother Heart disease; Hypertension Mother Hypertension; Relation Name Status Comments Father Mother Social History Tobacco Use Types Packs/Day Years Used Date Smoking Tobacco: Former Smokeless Tobacco: Never Tobacco Cessation:Counseling Given: Yes Alcohol Use Standard Drinks/Week Comments No 0 (1 standard drink = 0.6 oz pur e alcohol) Personal Safety Answer Date Recorded Getting School Help Needed Not on file 07/11 Comments Unknown Sex and Gender Information Value Date Recorded Sex Assigned at Not on file 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 Gender Identity Not on file Sexual Orientation Not on file Obstetrics History Last Filed Vital Signs Vital Sign Reading Time Taken Comments Blood Pressure 138/64 04/11/2024 8:54 AM CDT Pulse 76 04/11/2024 8:54 AM CDT Temperature - - Respiratory Rate - - Oxygen Saturation 98% 04/11/2024 8:54 AM CDT Inhaled Oxygen Concentration - - Weight 63.5 kg (140 lb) 04/11/2024 8:54 AM CDT Height 172.7 cm (5' 8 ) 04/11/2024 8:54 AM CDT Body Mass Index 21.29 04/11/2024 8:54 AM CDT Plan of Treatment Health Maintenance Due Date Last Done Comments Depression Screening 1944 Fall Risk Assessment 1944 Hepatitis C Screening 1944 Osteoporosis Screening-Bone Density Scan 1944 DTaP/Tdap/Td Vaccine (1 - Tdap) 11/13/1955 Hepatitis B Screening 1962 Pneumococcal vaccine 65+ (1 of 1 - PCV) 1994 Zoster Vaccine (1 of 2) 1994 Well Visit 65+ 2009 Influenza Vaccine (#1) 2024 7, 03/22/2016, 03/17/2015, Additional history exists Insurance [employer] [facility] Care Teams Organic Search Lead Relationship Specialty Start Date End Date Tano Rahman MD [address] [facility] [address] [place] [address] PCP - General 09/20/16
--- OUTSIDE RECORDS SUMMARY | 2024-08-30 10:58 | XMS_ITS | CONTINUITY OF CARE DOCUMENT ---
Author Name hernesto, jaydenser Address Unknown Organization [facility] [address] Address [address] [place] [address] Phone [phone] Care Team Providers Care Division Operations Specialist Name Role Phone Napoleon Munoz MD Unavailable [phone] LOPEZ HUSTON MD Unavailable [phone] LOPEZ HUSTON MD Unavailable [phone] PROBLEMS Condition Status Date Provider Notes HYPOTHYROIDISM, HX OF active Bell Luis Fernando HYPERCHOLESTEROLEMIA active Bell Luis Fernando HYPERTENSION-09/21 ECHO EF 55 active ? Julita Munoz MD CAD-10/16 STENT RCA- LIBERTE active ? Napoleon Munoz MD CAD-09/21 NUC NEG active ? Napoleon Munoz MD RENAL ARTERY STENOSIS-09/21 LENORE DUP NEG active ? Napoleon Munoz MD ENCOUNTERS Date Type Provider Location Encounter Diagnosis - In-person encounter Office Visit Napoleon Munoz MD [place] [facility] - In-person encounter Office Visit Napoleon Munoz MD [place] [facility] - In-person encounter Office Visit Napoleon Munoz MD [place] [facility] HYPERTENSION-09/21 ECHO EF 55CAD-10/16 STENT RCA- LIBERTECAD-09/21 NUC NEGRENAL ARTERY STENOSIS-09/21 LENORE DUP NEG - In-person encounter Office Visit Napoleon Munoz MD [place] [facility] - In-person encounter Office Visit Napoleon Munoz MD [place] [facility] - In-person encounter Office Visit Napoleon Munoz MD [place] [facility] VITAL SIGNS Date Observation Value Provider Body Mass Index (Ratio) 28.35 kg/m2 Mica foster Reed blood pressure, diastolic 87 mm[Hg] Me tristan Reed blood pressure, systolic 159 mm[Hg] Essie winkler Reed pulse rate 70 /min Nicol Reed oxygen saturation, oximetry 97 % Nicol Reed respiratory rate E&M 14 /min Nicol Reed weight E&M 181 [lb_av] Nicol Mccartneyann blood pressure, diastolic, left arm 66 mm [Hg] Danya Stueber blood pressure, systolic, left arm 124 mm [Hg] Danya Stueber blood pressure, diastolic, right arm 78 m m[Hg] Danya Stueber blood pressure, systolic, right arm 142 m m[Hg] Danya Stueber Body Mass Index (Ratio) 27.63 kg/m2 Michelle a Stueber blood pressure, diastolic 66 mm[Hg] Ta ayan Stueber blood pressure, systolic 124 mm[Hg] Krueger ya Stueber pulse rate 60 /min Danya Stueber oxygen saturation, oximetry 98 % Danya Stueber respiratory rate E&M 16 /min Danya Cain marks weight E&M 175.8 [lb_av] Danya Stueber height E&M 67 [in_i] Danya Stueber blood pressure, diastolic 81 mm[Hg] Elliott Hutson RN blood pressure, systolic 140 mm[Hg] Bertin Hutson RN pulse rate 73 /min Bertin Hutson RN oxygen saturation, oximetry 97 % Bertin Hutson RN respiratory rate E&M 16 /min Bertin lr RN weight E&M 154 [lb_av] Bertin Hutson RN blood pressure, diastolic, left arm 81 mm [Hg] Aria Blunt blood pressure, systolic, left arm 179 mm [Hg] Aria Blunt blood pressure, diastolic, right arm 93 m m[Hg] Aria Blunt blood pressure, systolic, right arm 186 m m[Hg] Aria Blunt blood pressure, diastolic 81 mm[Hg] He ather Blunt blood pressure, systolic 179 mm[Hg] Hea ther Blunt pulse rate 63 /min Aria Blunt oxygen saturation, oximetry 96 % Aria Blunt respiratory rate E&M 16 /min Aria Blunt weight E&M 169 [lb_av] Aria Blunt blood pressure, diastolic 72 mm[Hg] Telly paul York blood pressure, systolic 117 mm[Hg] Pat sy York pulse rate 74 /min Estefania York respiratory rate E&M 16 /min Estefania Y ork weight E&M 171 [lb_av] Estefania York blood pressure, diastolic, left arm 75 mm [Hg] Saul Manacop blood pressure, systolic, left arm 156 mm [Hg] Saul Manacop blood pressure, diastolic, right arm 77 m m[Hg] Saul Manacop blood pressure, systolic, right arm 148 m m[Hg] Saul Manacop blood pressure, diastolic 77 mm[Hg] Vane seph Manacop blood pressure, systolic 148 mm[Hg] Julien eph Manacop pulse rate 60 /min Saul Manacop oxygen saturation, oximetry 98 % Saul Manacop respiratory rate E&M 16 /min Saul Manacop weight E&M 173 [lb_av] Saul Manacop ALLERGIES No Known Drug Allergies RESULTS Date Observation Value Provider Reference Range Interpretation Location platelet count 292 10*3/mm3 Georgie Szymanski hematocrit, blood 40.6 % Georgie Szymanski triglyceride, serum, fasting 73 mg/dL [facility] HDL cholesterol, serum 57 mg/dL [facility] cholesterol/HDL ratio, serum 2.4 [facility] lipoprotein, beta, serum, point, quantitative, calculated 67 mg/dL [facility] cholesterol, serum 139 mg/dL [facility] thyroid stimulating hormone, serum 0.97 u[IU]/mL [facility] alanine aminotransferase (SGPT), serum 34 1/L [facility] aspartate aminotransferase (SGOT), serum 18 1/L [facility] creatinine, serum 0.94 mg/dL [facility] potassium, serum 4.6 mmol/L [facility] sodium, serum 139 mmol/L [facility] thyroid stimulating hormone, serum 2.300 u[IU]/mL [facility] alanine aminotransferase (SGPT), serum 30 1/L [facility] aspartate aminotransferase (SGOT), serum 23 1/L [facility] creatinine, serum 0.80 mg/dL [facility] potassium, serum 4.7 mmol/L [facility] sodium, serum 138 mmol/L [facility] prothrombin time (patient) 9.7 s [facility] 9.0-11.5 Normal international normalized ratio (INR) 0.9 [facility] Normal basophils as percent of blood leukocytes 0.5 % [facility] Normal eosinophils as percent of blood leukocytes 6.4 % [facility] Normal monocyte count, blood 9.2 % [facility] Normal lymphocyte count, blood 38.9 % [facility] Normal neutrophils as percent of blood leukocytes 45.0 % [facility] Normal basophils, absolute, manual 43 cells/mcL [facility] 0-200 Normal eosinophils, absolute, manual 544 cells/mcL [facility] 15-500 High monocytes, absolute, manual 782 cells/mcL [facility] 200-950 Normal lymphocytes, absolute 3307 CELLS/UL [facility] 850-3900 Normal Absolute Neutrophil count 3825 cells/mcL [facility] 2381-2721 Normal platelet count 337 THOUSAND/UL [facility] 140-400 Normal red blood cell distribution width 14.9 % [facility] 11.0-15.0 Normal mean corpuscular hemoglobin concentration, RBC 32.9 G/DL [facility] 32.0-36.0 Normal mean corpuscular hemoglobin, RBC 35.0 pg [facility] 27.0-33.0 High mean corpuscular volume, RBC 106.4 fL [facility] 80.0-100.0 High hematocrit, blood 44.0 % [facility] 35.0-45.0 Normal hemoglobin electrophoresis, blood 14.5 [facility] 11.7-15.5 Normal erythrocyte (RBC) count 4.14 MILLION/UL [facility] 3.80-5.10 Normal leukocyte (white blood cells) count, blood 8.5 THOUSAND/UL [facility] 3.8-10.8 Normal calcium, serum 9.5 mg/dL [facility] 8.6-10.2 Normal carbon dioxide, venous blood 27 mmol/L [facility] 21-33 Normal chloride, serum 104 mmol/L [facility] 98-110 Normal potassium, serum 4.8 mmol/L [facility] 3.5-5.3 Normal sodium, serum 141 mmol/L [facility] 135-146 Normal urea nitrogen/creatinine ratio, serum NOT APPLICABLE (calc) [facility] 6- Estimated Glomerular Filtration Rate (calc) >60 mL/min/1.73m2 [facility] > OR = 60 Normal creatinine, serum 0.92 mg/dL [facility] 0.60-1.18 Normal urea nitrogen, blood 16 mg/dL [facility] 7-25 Normal blood glucose, random 93 mg/dL [facility] 65-99 Normal HISTORY OF MEDICATION USE Medication Status Instructions Dates Provider Indications Com ments NITROGLYCERIN 0.4 MG SUBLINGUAL TABLET SUBLINGUAL active prn for chest pain 3 Napoleon Munoz MD CALCIUM CARBONATE TABLET active one tab. daily Matilde Candelario per med list ASPIRIN 81 MG ORAL TABLET active ONE TAB. DAILY Matilde Candelario permed list CRESTOR 10 MG ORAL TABLET active ONE TAB. DAILY 2 Bertin Hutson RN per med list METOPROLOL SUCCINATE ER 50 MG ORAL TABLET EXTENDED RELEASE 24 HOUR active one tab. daily Matilde Candelario per med list QUINAPRIL HCL 40 MG ORAL TABLET active 2 tablets once daily 6 Vane Youngblood per med list FAMOTIDINE 40 MG ORAL TABLET active one tab daily 3 Aria Alas per med list LEVOTHROID 88 MCG TABS active ONE TAB. DAILY Matilde Candelario per med list SOCIAL HISTORY Date Observation Value Provider social history E&M Marital Statu s: L kandy with family/friends J ob Status: Retired E thnicity: Smoking History: P doris has never smoked. Napoleon Munoz MD social history reviewed E&M constantino medina - no changes required Napoleon Munoz MD physical exercise, f requency, days per week yes Nicol Reed alcohol use, average drinks per day none Nicol Reed caffeine use, averag e drinks per day yes Nicol Reed drug use no Nicol Reed passive cigarette sm gadiel exposure no Nicol Reed smoking status Never smoker Nicol long drug use no Bertin Hutson RN passive cigarette sm gadiel exposure no Bertin Hutson RN social history reviewed E&M reviewed Bertin Hutson RN smoking status never smoker Danya Alexander social history reviewed E&M reviewed Bertin Hutson RN social history reviewed E&M reviewed Bertin Hutson RN social history reviewed E&M reviewed Napoleon Munoz MD social history E&M Marital Statu s: L kandy with family/friends J ob Status: Retired E thnicity: Napoleon Munoz MD drug use none Napoleon Munoz MD social history reviewed E&M reviewed Napoleon Munoz MD physical exercise, f requency, days per week yes [facility] caffeine use, averag e drinks per day yes [facility] alcohol use, average drinks per day none [facility] smoking status Non-smoker [facility] MENTAL STATUS Date Observation Value Provider assessment of judgme nt and insight E&M Alert and oriented to time, place and person. Mood and affect are normal. Bertin Hutson RN assessment of judgme nt and insight E&M Alert and oriented to time, place and person. Mood and affect are normal. Bertin Hutson RN assessment of judgme nt and insight E&M Alert and oriented to time, place and person. Mood and affect are normal. Bertin Hutson RN assessment of judgme nt and insight E&M Alert and oriented to time, place and person. Mood and affect are normal. Napoleon Munoz MD assessment of judgme nt and insight E&M Alert and oriented to time, place and person. Mood and affect are normal. Napoleon Munoz MD INSURANCE PROVIDERS Payer name Policy type / Coverage type [facility] ID [facility] Other [id number] TREATMENT PLAN Date Name Performer f/u: H er updated medication list for this problem includes: Simvastatin 40 Mg Tabs (Simvastatin) ..... One tab. daily BP today: 117/72 Prior BP: 148/77 (12/02/2009) Napoleon Munoz MD f/u Napoleon Merino f/u: H er updated medication list for this problem includes: Quinapril Hcl 40 Mg Tabs (Quinapril hcl) ..... Take 1 tab once daily Metoprolol Succinate 50 Mg Tb24 (Metoprolol succinate) ..... One tab. daily Simvastatin 40 Mg Tabs (Simvastatin) ..... One tab. daily Aspirin 81 Mg Tabs (Aspirin) ..... One tab. daily Nitroglycerin 0.4 Mg Subl (Nitroglycerin) ..... Prn for chest pain BP today: 117/72 Prior BP: 148/77 (12/02/2009) C ardiac Cath: Patent stent in the mid right coronary artery. 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 Normal left ventricular systolic function with an ejection fraction of 55%. CH (01/04/2010) H CT: 44.0 (12/29/2009) Platelets: 337 THOUSAND/UL (12/29/2009) R BC: 4.14 MILLION/UL (12/29/2009) BUN: 16 (12/29/2009) Creat: 0.92 (12/29/2009) Glucose: 93 (12/29/2009) N a+: 141 (12/29/2009) K+: 4.8 (12/29/2009) Cl: 104 (12/29/2009) PT: 9.7 (12/29/2009) INR: 0.9 (12/29/2009) Napoleon Munoz MD Overdue follow-up: H er updated medication list for this problem includes: Quinapril Hcl 40 Mg Tabs (Quinapril hcl) ..... Po twice daily Metoprolol Succinate 50 Mg Tb24 (Metoprolol succinate) ..... One tab. daily Aspirin 81 Mg Tabs (Aspirin) ..... One tab. daily Orders: E KG ([id number]) C ardiac Cath - CNE (*) BP today: 148/77 Napoleon Munoz MD Overdue follow-up: H er updated medication list for this problem includes: Simvastatin 40 Mg Tabs (Simvastatin) ..... One tab. daily Orders: C ardiac Cath - CNE (*) BP today: 148/77 Prior BP: / () Napoleon Munoz MD Overdue follow-up: H er updated medication list for this problem includes: Quinapril Hcl 40 Mg Tabs (Quinapril hcl) ..... Po twice daily Metoprolol Succinate 50 Mg Tb24 (Metoprolol succinate) ..... One tab. daily Simvastatin 40 Mg Tabs (Simvastatin) ..... One tab. daily Aspirin 81 Mg Tabs (Aspirin) ..... One tab. daily Nitroglycerin 0.4 Mg Subl (Nitroglycerin) ..... Prn for chest pain Orders: C ardiac Cath - CNE (*) BP today: 148/77 Prior BP: / () Napoleon Munoz MD Overdue follow-up: H er updated medication list for this problem includes: Quinapril Hcl 40 Mg Tabs (Quinapril hcl) ..... Po twice daily Metoprolol Succinate 50 Mg Tb24 (Metoprolol succinate) ..... One tab. daily Simvastatin 40 Mg Tabs (Simvastatin) ..... One tab. daily Aspirin 81 Mg Tabs (Aspirin) ..... One tab. daily Nitroglycerin 0.4 Mg Subl (Nitroglycerin) ..... Prn for chest pain BP today: 148/77 Prior BP: / () Orders: C ardiac Cath - CNE (*) Napoleon Munoz MD Date Name Stress Test - Adenos ine Holter Monitor 24 Hr Renal Artery Duplex Carotid Duplex Bilat eral PROTHROMBIN TIME WIT H INR CBC (INCLUDES DIFF/P LT) BASIC METABOLIC PANE L W/EGFR Carotid Duplex Bilat eral Complete Echo Cardiac Cath - CNE HISTORY OF PROCEDURES Procedure Date Procedure Name Provider Procedure Notes S tatus EKGeeta Munoz MD complet ed EKGeeta Munoz MD complet ed EKGeeta Munoz MD complet ed EKG Napoleon Munoz MD complet ed
--- OUTSIDE RECORDS SUMMARY | 2024-08-30 10:58 | XMS_ITS | Continuity of Care Document ---
Author Organization [facility] Address [address] [place] [address] Phone Care Team Providers Care Director [employer] Name Role Phone Gonsalo Ahn Unavailable Unavailable [...] Copied on Encounter Office/outpat ient Visit, Est [facility], [address] [place] [address] [address], [place], [place], [id number], [place] tel:[phone] SEC [facility] No Information [address] [place], [address], [place]. tel:[phone] [facility], [address], [place], [place], [id number], [place] tel:[phone] SEC [facility] No Information 8 Ahn Gonsalo[address] [place], [address], [place]. tel:[phone] [facility] Eye [facility], [address], [place], [place], [id number], [place] tel:[phone] SEC [facility] No Information Bertin-0 7-200 8 Ahn Gonsalo[address] [place], [address], [place]. tel:[phone] Office/outpat ient Visit, Est [facility], [address], [place], [place], [id number], [place] tel:[phone] SEC [facility] No Information May-2 6-200 7 Radha Mary. [address], [place], [address], [place]. tel:[phone] [facility] Eye [facility], [address], [place], [place], [id number], [place] tel:[phone] [facility] No Information Dec-2 3-200 7 Anabelle [address] [place], [address], [place]. tel:[phone] [facility] Eye [facility], [address], [place], [place], [id number], [place] tel:[phone] [facility] No Information Sep-2 3-200 7 [address] [place], [address], [place]. tel:[phone] Office/outpat ient Visit, Est [facility] Eye [facility], [address], [place], [place], [id number], [place] tel:[phone] [facility] No Information Bertin-2 9-200 7 [address] [place], [address], [place]. tel:[phone] Family History Family Member Type Diagnosis Age At Onset No Information Payers Payer name Insurance type Covered alliance party ID Authoriza tielyssa(s) No Information Social [...]
--- OUTSIDE RECORDS SUMMARY | 2024-08-30 10:59 | XMS_ITS | Referral Summary ---
Author Organization [facility] [address] Address [address] [place] [address] Care Team Providers Care Unpaid Intern Name Role Phone Tano Rahman MD Primary [...] 1 tablet (75 mcg total) by mouth access service representative before breakfast Active [id number] -Lmfolate-algal 27 mg iron-1.13 mg-581.92 mg capsule [...] Uncontrolled hypertension Coronary artery disease invo lving [place] coronary artery of [place] heart without angina pectoris 06/01/2015 Overview (09/22/2016): Coronary artery disease involving [place] coronary artery of [place] heart without angina pectoris Resolved Problems Problem Noted Date Diagnosed Date Resolved Date Tobacco use and exposure - finding 06/01/2015 02/22/2021 Overview (09/22/2016): H/O tobacco use, presenting hazards to health Dyslipidemia 06/01/2015 09/23/2021 Overview (09/22/2016): Dyslipidemia History of placement of sten t for coronary artery disease 06/01/2015 08/01/2019 Overview (09/22/2016): S/P coronary artery stent placement Social History Tobacco Use Types Packs/Day Years [...] on file 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
[2024-08-30 11:42] LABS: Vitamin B12 > 1000.0 pg/mL (239-931)
[2024-09-03 11:32] LABS: Vitamin B6 36.6 ng/mL (2.1-21.7)
[2024-09-03 13:03] LABS: Vitamin B1 12 nmol/L (8-30)
[2024-09-03 20:14] LABS: Immunofixation, Serum Normal pattern.
== END 2024-08-30 09:51 | disposition home or self-care (01) ==
LOC: ANHLAB 09:53
PROVIDERS: PCP Family Medicine; Referring Provider Psychiatry & Neurology Neurology; Visit Provider Physician Assistant
DX: E87.1 Hypo-osmolality and hyponatremia (principal); I25.10 Atherosclerotic heart disease of native coronary artery without angina pectoris; S42.231D 3-part fracture of surgical neck of right humerus, subsequent encounter for fracture with routine healing; X58.XXXD Exposure to other specified factors, subsequent encounter; R26.9 Unspecified abnormalities of gait and mobility; I13.10 Hypertensive heart and chronic kidney disease without heart failure, with stage 1 through stage 4 chronic kidney disease, or unspecified chronic kidney disease; E11.22 Type 2 diabetes mellitus with diabetic chronic kidney disease; N18.30 Chronic kidney disease, stage 3 unspecified; E55.9 Vitamin D deficiency, unspecified; G62.9 Polyneuropathy, unspecified; M54.50 Low back pain, unspecified
CPT/HCPCS: 36415; 80048; 82607; 82652; 83036; 83090; 83540; 83550; 83921; 84207; 84425; 84443; 86038; 86334; 86430

== ENCOUNTER 2024-10-10 09:30 | Outpatient (CLI) | payer OTHER, SELFPAY ==
--- OUTSIDE RECORDS SUMMARY | 2024-10-10 09:57 | XMS_ITS | CONTINUITY OF CARE DOCUMENT ---
Author Name hernesto, jaydenser Address Unknown Organization [facility] Address [address] [facility] [address] [place] [address] Phone [phone] Care Team Providers Care Rn Building Name Role Phone Napoleon Munoz MD Unavailable LOPEZ HUSTON MD Unavailable LOPEZ HUSTON MD Unavailable PROBLEMS Condition Status Date Provider Notes HYPOTHYROIDISM, [...] In-person encounter Office Visit Napoleon Munoz MD [facility] - In-person encounter Office Visit Napoleon Munoz MD [facility] - In-person encounter Office Visit Napoleon Munoz MD [facility] HYPERTENSION-09/21 ECHO EF 55CAD-10/16 STENT RCA- LIBERTECAD-09/21 NUC NEGRENAL ARTERY STENOSIS-09/21 LENORE DUP NEG - In-person encounter Office Visit Napoleon Munoz MD [facility] - In-person encounter Office Visit Napoleon Munoz MD [facility] - In-person encounter Office Visit Napoleon Munoz MD [facility] VITAL SIGNS Date Observation Value Provider [...] Georgie Szymanski triglyceride, serum, fasting 73 mg/dL [facility] HDL cholesterol, serum 57 mg/dL [facility] cholesterol/HDL ratio, serum 2.4 [facility] lipoprotein, beta, serum, point, quantitative, calculated 67 mg/dL [facility] cholesterol, serum 139 mg/dL [facility] thyroid stimulating hormone, serum 0.97 u[IU]/mL [facility] alanine aminotransferase (SGPT), serum 34 1/L [facility] aspartate aminotransferase (SGOT), serum 18 1/L [facility] creatinine, serum 0.94 mg/dL [facility] potassium, serum 4.6 mmol/L [facility] sodium, serum 139 mmol/L [facility] thyroid stimulating hormone, serum 2.300 u[IU]/mL [facility] alanine aminotransferase (SGPT), serum 30 1/L [facility] aspartate aminotransferase (SGOT), serum 23 1/L [facility] creatinine, serum 0.80 mg/dL [facility] potassium, serum 4.7 mmol/L [facility] sodium, serum 138 mmol/L [facility] prothrombin time (patient) 9.7 [facility]5 Normal international normalized ratio (INR) 0.9 [facility] Normal basophils as percent of blood leukocytes 0.5 % [facility] Normal eosinophils as percent of blood leukocytes [...] Normal Absolute Neutrophil count 3825 cells/mcL [facility] [id number] Normal platelet count 337 THOUSAND/UL [facility] 140-400 [...] Payer name Policy type / Coverage type [facility]ly [facility] [id number] TREATMENT PLAN Date Name Performer f/u: H [...] ..... One tab. daily Orders: E KG ([id number]) C ardiac Cath - CNE (*) BP [...]
--- OUTSIDE RECORDS SUMMARY | 2024-10-10 09:57 | XMS_ITS | Continuity of Care Document ---
Author Organization [facility] Address [address] [place] [address] Phone Care Team Providers Care Neck Band Maker Name Role Phone Gonsalo Ahn Unavailable Unavailable [...] Copied on Encounter Office/outpat ient Visit, Est formerly [facility], [address] [place] [address] [address], [place], [place], [address], [place] tel:[phone] [facility] No Information [address] [place], [address], [place]. tel:[phone] formerly [facility], [address], [place], [place], [address], [place] tel:[phone] [facility] No Information 8 Ahn Gonsalo. [address] [place], [address], [place]. tel:[phone] [facility] Eye [facility], [address], [place], [place], [address], [place] tel:[phone] [facility] No Information Bertin-0 7-200 8 Ahn Gonsalo[address] [place], [address], [place]. tel:[phone] [facility], [address], [place], [place], [address], [place] tel:[phone] [facility] No Information May-2 6-200 7 Radha Mary. [address], [place], [address], [place]. tel:[phone] [facility] Eye [facility], [address], [place], [place], [address], [place] tel:[phone] [facility] No Information Dec-2 3-200 7 [address] [place], [address], [place]. tel:[phone] [facility] Eye [facility], [address], [place], [place], [address], [place] tel:[phone] [facility] No Information Sep-2 3-200 7 [address] [place], [address], [place]. tel:[phone] Office/outpat ient Visit, Est [facility] Eye [facility], [address], [place], [place], [address], [place] tel:[phone] [facility] No Information Bertin-2 9-200 7 [address] [place], [address], [place]. tel:[phone] Family History Family Member Type Diagnosis Age At Onset No Information Payers Payer name Insurance type Covered republican ID Authoriza tielyssa(s) No Information Social History [...]
--- OUTSIDE RECORDS SUMMARY | 2024-10-10 09:57 | XMS_ITS | Clinical Summary ---
Author Organization [facility] [address] Address [address] [place] [address] Care Team Providers Care Pick Pack Worker Name Role Phone Tano Rahman MD Primary [...] 1 tablet (75 mcg total) by mouth donations attendant before breakfast Active [id number] -Lmfolate-algal 27 mg iron-1.13 mg-581.92 mg capsule [...] Uncontrolled hypertension Coronary artery disease invo lving [place] coronary artery of [place] heart without angina pectoris 06/01/2015 Overview (09/22/2016): Coronary artery disease involving [place] coronary artery of [place] heart without angina pectoris Resolved Problems Problem [...] on file 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
--- OUTSIDE RECORDS SUMMARY | 2024-10-10 09:58 | XMS_ITS | Referral Summary ---
Author Organization [facility] [address] Address [address] [place] [address] Care Team Providers Care Proposal Manager Name Role Phone Tano Rahman MD Primary [...] 1 tablet (75 mcg total) by mouth lastex operator before breakfast Active [id number] -Lmfolate-algal 27 mg iron-1.13 mg-581.92 mg capsule [...] Uncontrolled hypertension Coronary artery disease invo lving [place] coronary artery of [place] heart without angina pectoris 06/01/2015 Overview (09/22/2016): Coronary artery disease involving [place] coronary artery of [place] heart without angina pectoris Resolved Problems Problem [...] on file 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
--- NOTE | 2024-10-10 12:00 | NEURO_ITS ---
Clinical note: The patient is 78-year-old female with history of paresthesias in both lower limbs and lower back pain for about a year. No history of diabetes mellitus for major trauma. EMG and nerve study were performed for evaluation of peripheral neurologic disorders. Brief examination of the lower limbs did not show any focal motor weakness or atrophy or fasciculations at this time. The results of the study are given below. Summary of findings: 1. Left and right peroneal motor distal latencies and amplitudes were within normal limits however conduction velocity from below fibular head to ankle were mildly decreased. There was no slowing across the fibular head. 2. Left and right tibial motor distal latency is mildly prolonged on the left and normal on the right side with amplitudes were normal. Conduction velocity mildly decreased on the left and mildly decreased on the right side. 3. Left and right medial plantar sensory were absent left sural sensory was also absent. Right sural sensory distal latency was mildly prolonged and amplitude is significantly decreased. 4. Left and right H reflex was also absent 5. EMG examination was performed using a monopolar needle electrode. Various muscles were examined in lower limbs and related paraspinal muscles and L3-S1 distribution. No denervation changes were seen in peripheral or paraspinal muscles. Mild decreased recruitment was noted in the right medial gastrocnemius. Impression: EMG and nerve conduction study of both lower limbs show evidence of mild predominantly sensory, length-dependent, axonal polyneuropathy. Etiologic correlation is recommended. Zan Romo MD, FAAN, FAANEM Neurologist ? Nerve Conduction Studies Motor Nerve Results ? Latency Amplitude F-Lat Segment Distance CV Comment Site (ms) (mV) (ms) (cm) (m/s) Left Peroneal (EDB) Motor Ankle 4.9 3.6 Bel Fib Head 13.1 2.9 Bel Fib Head-Ankle 300 37 Pop Fossa 14.6 2.8 Pop Fossa-Bel Fib Head 75 50 Right Peroneal (EDB) Motor Ankle 4.7 3.4 Bel Fib Head 12.7 2.8 Bel Fib Head-Ankle 270 34 Pop Fossa 14.1 2.9 Pop Fossa-Bel Fib Head 70 50 Left Tibial (AHB) Motor Ankle 6.2 7.0 Knee 16.4 4.3 Knee-Ankle 400 39 Right Tibial (AHB) Motor Ankle 5.2 7.1 Knee 16.1 3.8 Knee-Ankle 400 37 Sensory Nerve Results ? Latency (Peak) Amplitude (P-P) Segment Distance CV Comment Site (ms) (?V) (cm) (m/s) Left Medial Plantar (Ortho) Sensory Great Toe-Med Mall NR NR [place]-Med [place] 110 NR Right Medial Plantar (Ortho) Sensory [place]-Med Mall NR NR [place]-Med [place] 110 NR Left Sural Sensory Calf-Lat Mall NR NR Calf-Lat Mall 120 NR Right Sural Sensory Calf-Lat Mall 4.1 2 Calf-Lat Mall 120 29 H-Reflex Results ? M-Lat H Lat H Peak-Peak Amp M Peak-Peak Amp H-M Lat Site (ms) (ms) mV mV (ms) Left Tibial H-Reflex Pop Fossa 6.7 - - 2.6 - Right Tibial H-Reflex Pop Fossa - NR - - NR Electromyography ?Side Muscle Nerve Ins Act Fibs Psw Amp Dur Recrt Comment Right BicepsFemS Sciatic Nml Nml Nml Nml Nml Nml Right Semimembranosus Sciatic Nml Nml Nml Nml Nml Nml Right AntTibialis Dp Br Fibular Nml Nml Nml Nml Nml Nml Right Gastroc Tibial Nml Nml Nml Nml Nml +1 Right VastusMed Femoral Nml Nml Nml Nml Nml Nml Left BicepsFemS Sciatic Nml Nml Nml Nml Nml Nml Left Semimembranosus Sciatic Nml Nml Nml Nml Nml Nml Left AntTibialis Dp Br Fibular Nml Nml Nml Nml Nml Nml Left Gastroc Tibial Nml Nml Nml Nml Nml Nml Left RectFemoris Femoral Nml Nml Nml Nml Nml Nml Right L4 Parasp Rami Nml Nml Nml Nml Nml Nml Left L4 Parasp Rami Nml Nml Nml Nml Nml Nml Right L5 Parasp Rami Nml Nml Nml Nml Nml Nml Left L5 Parasp Rami Nml Nml Nml Nml Nml Nml MTDD
== END 2024-10-10 09:31 | disposition home or self-care (01) ==
PROVIDERS: PCP Family Medicine; Visit Provider Psychiatry & Neurology Neurology
DX: G62.9 Polyneuropathy, unspecified (principal); E11.9 Type 2 diabetes mellitus without complications; M54.50 Low back pain, unspecified; R29.6 Repeated falls; I13.10 Hypertensive heart and chronic kidney disease without heart failure, with stage 1 through stage 4 chronic kidney disease, or unspecified chronic kidney disease; E11.22 Type 2 diabetes mellitus with diabetic chronic kidney disease; N18.9 Chronic kidney disease, unspecified; S42.231D 3-part fracture of surgical neck of right humerus, subsequent encounter for fracture with routine healing; X58.XXXD Exposure to other specified factors, subsequent encounter
CPT/HCPCS: 95886; 95910

== ENCOUNTER 2024-10-24 08:59 | Outpatient (CLI) | payer OTHER, SELFPAY ==
--- NOTE | ~2024-10-24 | MR_ITS ---
MRI of the lumbar spine Clinical History: Polyneuropathy Technique: Axial T2-weighted images, and sagittal T1-weighted, T2-weighted, and and T2 fat-sat images were acquired. Findings: There is no fracture identified. There is 6 mm retrolisthesis of L2 over L3. There is minim al grade 1 retrolisthesis of L1 over L2. No suspicious bone marrow signal abnormality seen. At L1-L2, there is advanced degenerative disc narrowing. There is minimal disc bulge and mild facet a rthropathy. No central canal stenosis or neural foraminal narrowing. At L2-L3, there is severe degenerative spine. There is moderate to advanced facet arthropathy. No major tral canal stenosis. There is severe left neural foraminal narrowing. Right neural foramen is intact. At L3-L4, there is mild disc bulge with advanced facet arthropathy. No brandon central canal stenosis. There is moderate bilateral neural foraminal narrowing, right worse than left. At L4-L5, there is disc bulge and advanced facet arthropathy. There is mild to moderate central canal stenosis. There is severe right neural foraminal narrowing with right foraminal focal disc protrusio n/extrusion. Left neural foramen demonstrates moderate narrowing. At L5-S1, there is minimal disc bulge. There is advanced facet arthropathy. No central canal stenosis or definite neural foraminal narrowing. Paravertebral soft tissues are unremarkable. Impression: Right foraminal disc protrusion/extrusion at L4-L5 with narrowing of the right neural foramen and pro bable impingement of the exiting right-sided nerve root at this level. Additional degenerative changes, as detailed above, moderate in degree overall. 6 mm retrolisthesis of L2 over L3. Reviewed, dictated and finalized at [facility]. Impression: Right foraminal disc protrusion/extrusion at L4-L5 with narrowing of the right neural foramen and probable impingement of the exiting right-sided nerve root a t this level. Additional degenerative changes, as detailed above, moderate in degree overall. 6 mm retrolisthesis of L2 over L3.
--- OUTSIDE RECORDS SUMMARY | 2024-10-24 09:05 | XMS_ITS | Continuity of Care Document ---
Author Organization [facility] Address [address] [facility] [address] [place] [address] Phone Care Team Providers Care Freight Car Inspector Name Role Phone Gonsalo Ahn Unavailable Unavailable [...] Copied on Encounter Office/outpat ient Visit, Est [facility], [address] [place] [address] [address], [place], [place], [address], [place] tel:[phone] [facility] No Information [address] [place], [address], [place]. tel:[phone] [facility], [address], [place], [place], [address], [place] tel:[phone] [facility] No Information 8 Ahn Gonsalo. [address] [place], [address], [place]. tel:[phone] [facility] Eye [facility], [address], [place], [place], [address], [place] tel:[phone] [facility] No Information Bertin-0 7-200 8 Ahn Gonsalo. [address] [place], [address], [place]. tel:[phone] [facility]pat ient [facility], [address], [place], [place], [address], [place] tel:[phone] [facility] No Information May-2 6-200 7 Radha Mary. [address], [place], [address], [place]. tel:[phone] [facility] Eye [facility], [address], [place], [place], [address], [place] tel:[phone] [facility] No Information Dec-2 3-200 7 [address]ush. [address] [place], [address], [place]. tel:[phone] [facility], [address], [place], [place], [address], [place] tel:[phone] [facility] No Information Sep-2 3-200 7 [address] [place], [address], [place]. tel:[phone] Office/outpat ient Visit, Est [facility] Eye [facility], [address], [place], [place], [address], [place] tel:[phone] [facility] No Information Bertin-2 9-200 7 [address] [place], [address], [place]. tel:[phone] Family History Family Member Type Diagnosis Age [...]
--- OUTSIDE RECORDS SUMMARY | 2024-10-24 09:05 | XMS_ITS | Clinical Summary ---
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 Active [id number] -Lmfolate-algal 27 mg iron-1.13 mg-581.92 mg capsule [...] Uncontrolled hypertension Coronary artery disease invo lving [place] coronary artery of [place] heart without angina pectoris 06/01/2015 Overview (09/22/2016): Coronary artery disease involving [place] coronary artery of [place] heart without angina pectoris Resolved Problems Problem [...] on file 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
--- OUTSIDE RECORDS SUMMARY | 2024-10-24 09:05 | XMS_ITS | Referral Summary ---
Author Organization [facility] [address] Address [address] [place] [address] Care Team Providers Care Manager Bilingual Name Role Phone Tano Rahman MD Primary [...] 1 tablet (75 mcg total) by mouth proposal coordinator before breakfast Active [id number] -Lmfolate-algal 27 mg iron-1.13 mg-581.92 mg capsule [...] Uncontrolled hypertension Coronary artery disease invo lving [place] coronary artery of [place] heart without angina pectoris 06/01/2015 Overview (09/22/2016): Coronary artery disease involving [place] coronary artery of [place] heart without angina pectoris Resolved Problems Problem [...] on file 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
== END 2024-10-24 09:00 | disposition home or self-care (01) ==
PROVIDERS: PCP Family Medicine; Visit Provider Psychiatry & Neurology Neurology
DX: M51.26 Other intervertebral disc displacement, lumbar region (principal); G62.9 Polyneuropathy, unspecified; R29.6 Repeated falls; I13.10 Hypertensive heart and chronic kidney disease without heart failure, with stage 1 through stage 4 chronic kidney disease, or unspecified chronic kidney disease; I25.10 Atherosclerotic heart disease of native coronary artery without angina pectoris; E11.29 Type 2 diabetes mellitus with other diabetic kidney complication; S42.231D 3-part fracture of surgical neck of right humerus, subsequent encounter for fracture with routine healing
CPT/HCPCS: 72148

== ENCOUNTER 2024-11-25 09:39 | Outpatient (CLI) | payer OTHER, SELFPAY ==
--- NOTE | ~2024-11-25 | MM_ITS ---
EXAMINATION: MM screening julieth BI w cathy HISTORY: Screening TECHNIQUE: Craniocaudal and mediolateral oblique 3-D tomosynthesis images were obtained and synthetic 2-D images were generated. CAD analysis was submitted and interpreted. COMPARISON: Comparison to multiple prior studies sequentially, with oldest reviewed study dated 12/25. BREAST PARENCHYMAL COMPOSITION: Dense: The breasts are heterogeneously dense, which may obscure small masses FINDINGS: There is no evidence of suspicious mass, calcification, or architectural distortion to sugg est malignancy in either breast. There has been no suspicious interval change. IMPRESSION: 1. No mammographic evidence of malignancy. 2. Recommend routine screening mammography in one year. BI-RADS Category 1: Negative Reviewed, dictated and finalized at location A.
--- NOTE | ~2024-11-25 | DEXA_ITS ---
Bone Density Report Name: ZACHARIAH GALICIA Age: 79 Sex: Female Ethnicity: White Date of : 1945 Indication: osteopenia; height loss; hysterectomy; Referring Provider: GELY GAYLE Study: Bone densitometry was performed. Exam Date: November 25, 2024 Accession number: [id number] Bone Density: Region BMD T-score Z-score Classification AP Spine(L1-L4) 0.906 -1.3 1.4 Osteopenia Femoral Neck (Left) 0.493 -3.2 -0.9 Osteoporosis Total Hip (Left) 0.629 -2.6 -0.5 Osteoporosis Femoral Neck (Right) 0.529 -2.9 -0.6 Osteoporosis Total Hip (Right) 0.586 -2.9 -0.9 Osteoporosis Total Hip Mean 0.608 -2.8 -0.7 Osteoporosis World Health Organization criteria for BMD impression classify patients as: Normal (T-score at or above -1.0), Osteopenia (T-score between -1.0 and -2.5), or Osteoporosis (T-score at or below -2.5). 10-year Fracture Risk: FRAX not reported because: Some T-score for Spine Total or Hip Total or Femoral Neck at or below -2.5 Previous Exams: Region Exam Age BMD T-score BMD Change BMD Change Date g/cm2 vs Baseline vs Previous Total Hip(Left) 11/25/2024 79 0.629 -2.6 -0.152 (-19.5% -0.067 (-9.6%) 10/13/2022 76 0.696 -2.0 -0.085 (-10.9% -0.085 (-10.9% 06/25/2020 74 0.781 -1.3 Total Hip(Right) 11/25/2024 79 0.586 -2.9 -0.108 (-15.6% -0.061 (-9.4%) 10/13/2022 76 0.647 -2.4 -0.048 (-6.8%) -0.048 (-6.8%) 06/25/2020 74 0.694 -2.0 *Denotes significance at 95% confidence level, LSC for Total Hip = 0.027 g/cm2 Clinical Information Provided by Patient: Has used the following medications: Calcium Has the following medical conditions: Hysterectomy Patient maximum height was 67 Menopause Age: 28 No regular weight bearing exercise Does not regularly consume dairy products Drinks caffeinated beverages Onset of menses at age 15 Number of children 1 Impression: The patient has osteoporosis, based on the Left Femoral Neck T-score. The BMD for the Total Hip(Left) decreased, changing by -9.6% since the last DXA exam. The BMD for the Total Hip(Right) decreased, changing by -9.4% since the last DXA exam. Discussion: INCREASED RISK OF FRACTURE. BONE DENSITY IS UNDESIRABLY LOW AT ONE OR MORE SKELETAL SITES, CONSISTENT WITH POSTMENOPAUSAL OSTEOPOROSIS. This patient's lowest T-score meets the World Health Organization's (WHO) criteria for osteoporosis at one or more sites (T-score -2.5 or below). In untreated patients, the risk of osteoporotic fracture increases approximately two-fold for each 1.0 SD decrease in T-score. Low bone density is not the only risk factor for fracture; also consider factors such as patient's age, frailty or poor health, risk of falling, risk of injury, previous osteoporotic fracture, family history of osteoporosis, cigarette smoking, low body weight, etc. Not everyone with low bone mineral density has osteoporosis; osteomalacia and other metabolic bone disorders should also be considered. Patients who have osteoporosis should be evaluated for specific diseases and conditions (secondary causes) that may cause or contribute to bone loss. The [place] Association of Clinical Endocrinologists (AACE) and National Osteoporosis Foundation (NOF) recommend pharmacologic intervention for all postmenopausal women whose T-score is in this range. The patient should follow a healthful lifestyle (good nutrition with adequate calcium and vitamin D, and appropriate weight-bearing exercise). Follow-Up: Consider a repeat BMD and Vertebral Fracture Assessment (VFA) exam in 2 years or sooner if medically necessary, to reassess this patient's status. Reported by: KATELYN on 11/25/2024 10:24:00 AM. Reviewed, dictated and finalized at location A.
--- OUTSIDE RECORDS SUMMARY | 2024-11-25 10:17 | XMS_ITS | Continuity of Care Document ---
Author Organization [facility] Address [address] [facility] [address] [place] [address] Phone Care Team Providers Care Senior Digital Designer Name Role Phone Gonsalo Ahn Unavailable Unavailable [...] Copied on Encounter Office/outpat ient Visit, Est [facility], [address] [place] [address] [address], [place], [place], [address], [place] tel:[phone] SEC [facility] No Information 8 [address]. [address] [place], [address], [place]. tel:[phone] [facility], [address], [place], [place], [address], [place] tel:[phone] [facility] No Information 8 Han Gonsalo. [address] [place], [address], [place]. tel:[phone] [facility] Eye [facility], [address], [place], [place], [address], [place] tel:[phone] [facility] No Information Bertin-0 7-200 8 Ahn Gonsalo. [address] [place], [address], [place]. tel:[phone] [facility]pat ient [facility], [facility], [address], [place], [place], [address], [place] tel:[phone] [facility] No Information May-2 6-200 7 Radha Mary. [address], [place], [address], [place]. tel:[phone] [facility], [address], [place], [place], [address], [place] tel:[phone] [facility] No Information Dec-2 3-200 7 Anabelle Brush. [address] [place], [address], [place]. tel:[phone] [facility], [address], [place], [place], [address], [place] tel:[phone] [facility] No Information Sep-2 3-200 7 Anabelle Brush. [address] [place], [address], [place]. tel:[phone] Office/outpat ient Visit, Est [facility], [address], [place], [place], [address], [place] tel:[phone] [facility] No Information Bertin-2 9-200 7 An[address] Brush. [address] [place], [address], [place]. tel:[phone] Family History Family Member Type Diagnosis Age [...]
--- OUTSIDE RECORDS SUMMARY | 2024-11-25 10:17 | XMS_ITS | Referral Summary ---
Author Organization [facility] [place] [address] Address [address] [place] [address] Care Team Providers Care Retail Salesman Name Role Phone Tano Rahman MD Primary Care Provider Allergies No known active allergies Medications famotidine (PEPCID) 40 mg tablet take 1 tablet by oral route every day at bedtime 0 0 06/01/20 15 Active hydroCHLOROthi azide (HYDRODIURIL) 25 mg tablet take 1 tablet by oral route every day 0 0 06/01/20 15 Active aspirin (ASPIR-81) 81 mg tablet take 1 tablet by oral route every day 0 0 06/01/20 15 Active calcium carbonate (CALCIUM 600) 1,500 mg (600 mg of elemental calcium) tablet take 1 by Oral route 2 times every day 0 0 06/01/20 15 Active metoprolol XL (TOPROL-XL) 50 mg 24 hr tablet take 1 tablet by oral route every day 30 6 03/15/20 16 Active levothyroxine (SYNTHROID) 75 mcg tablet Take 1 tablet (75 mcg total) by mouth computer education teacher before breakfast Active -bmx w-Vzahatka-zty al 27 mg iron-1.13 mg-581.92 mg capsule Take by mouth Active lisinopriL (PRINIVIL,ZEST RIL) 40 mg tablet Take 1 tablet (40 mg total) by mouth daily 02/10/20 23 Active rOPINIRole (REQUIP) 1 mg tablet Take 1 tablet (1 mg total) by mouth 2 (two) times a day 01/30/20 24 Active gabapentin (NEURONTIN) 100 mg capsule Take 2 capsules (200 mg total) by mouth 2 (two) times a day 02/18/20 24 Active amLODIPine (NORVASC) 5 mg tablet TAKE 1 TABLET (5 MG TOTAL) BY MOUTH DAILY. 90 tablet 2 10/29/19 25 Active rosuvastatin (CRESTOR) 40 mg tablet TAKE 1 TABLET BY MOUTH EVERY DAY 90 tablet 2 11/06/19 25 Active ezetimibe (ZETIA) 10 mg tablet TAKE 1 TABLET BY MOUTH EVERY DAY 90 tablet 2 11/06/19 25 Active rosuvastatin (CRESTOR) 40 mg tablet Take 1 tablet (40 mg total) by mouth daily 90 tablet 2 02/02/20 24 025 Discontinued amLODIPine (NORVASC) 5 mg tablet Take 1 tablet (5 mg total) by mouth daily 90 tablet 2 02/02/20 24 025 Discontinued ezetimibe (ZETIA) 10 mg tablet Take 1 tablet (10 mg total) by mouth daily 90 tablet 2 02/02/20 24 025 Discontinued Active Problems Problem Noted Date Diagnosed Date History of tobacco abuse 03/29/2022 Screening for AAA (abdominal aortic aneurysm) Mixed hyperlipidemia 09/23/2021 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 S/P coronary artery stent placement 08/23/2017 Dizziness 03/15/2016 Overview (09/22/2016): Dizziness Old myocardial infarction 06/01/2015 Overview (09/22/2016): H/O myocardial infarction of inferior wall, greater than 8 weeks Hypertension 06/01/2015 Overview (09/22/2016): Uncontrolled hypertension Coronary artery disease invo lving [place] coronary artery of [place] heart without angina pectoris 06/01/2015 Overview (09/22/2016): Coronary artery disease involving [place] coronary artery of [place] heart without angina pectoris Resolved Problems Problem [...] on file 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
--- OUTSIDE RECORDS SUMMARY | 2024-11-25 10:17 | XMS_ITS | Clinical Summary ---
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 Active sevteysl77-agh f-Ohfdagbf-xmx al 27 mg iron-1.13 mg-581.92 mg capsule [...] Uncontrolled hypertension Coronary artery disease invo lving [place] coronary artery of [place] heart without angina pectoris 06/01/2015 Overview (09/22/2016): Coronary artery disease involving [place] coronary artery of [place] heart without angina pectoris Resolved Problems Problem [...] on file 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 Gender Identity Not on file Sexual Orientation [...] Depression Screening 1945 Fall Risk Assessment 1945 Osteoporosis Screening-Bone Density Scan 1945 DTaP/Tdap/Td Vaccine (1 - Tdap) 11/13/1955 Hepatitis B Screening 1962 Pneumococcal vaccine 65+ (1 of 1 - PCV) 1994 Zoster Vaccine (1 of 2) 1994 Well Visit 65+ 2009 Influenza Vaccine (Season Ended) 2025 03/14/2017, 03/22/2016, 03/17/2015, Additional history exists Insurance [facility] Member Subscriber Plan / Payer (Ef fective 2017-Present) Name:ZACHARIAH MARTINEZ Relation to Subscriber:Self Name:Zachariah Martinez Payer ID:[id number] (NAIC) Type:MEDICARE RISK OTHER Address: [place] [id number] Care Teams Professional Athletes Coach Relationship Specialty Start Date End Date Tano Rahman MD [address] [facility] [address] [place] [address] PCP - General 09/20/16
--- OUTSIDE RECORDS SUMMARY | 2024-11-25 10:17 | XMS_ITS | CONTINUITY OF CARE DOCUMENT ---
Author Name hernesto, jaydenser Address Unknown Organization [facility] Address [address] [facility] [address] [place] [address] Phone [phone] Care Team Providers Care Distribution Transformer Assembler Name Role Phone Napoleon Munoz MD Unavailable [...] In-person encounter Office Visit Napoleon Munoz MD [facility] - In-person encounter Office Visit Napoleon Munoz MD [facility] - In-person encounter Office Visit Napoleon Munoz MD [facility] HYPERTENSION-09/21 ECHO EF 55CAD-10/16 STENT RCA- LIBERTECAD-09/21 NUC NEGRENAL ARTERY STENOSIS-09/21 LENORE DUP NEG - In-person encounter Office Visit Napoleon Munoz MD [facility] - In-person encounter Office Visit Napoleon Munoz MD [facility] - In-person encounter Office Visit Napoleon Munoz MD [facility] VITAL SIGNS Date Observation Value Provider [...] Georgie Szymanski triglyceride, serum, fasting 73 mg/dL [facility] HDL cholesterol, serum 57 mg/dL [facility] cholesterol/HDL ratio, serum 2.4 [facility] lipoprotein, beta, serum, point, quantitative, calculated 67 mg/dL [facility] cholesterol, serum 139 mg/dL [facility] thyroid stimulating hormone, serum 0.97 u[IU]/mL [facility] alanine aminotransferase (SGPT), serum 34 1/L [facility] aspartate aminotransferase (SGOT), serum 18 1/L [facility] creatinine, serum 0.94 mg/dL [facility] potassium, serum 4.6 mmol/L [facility] sodium, serum 139 mmol/L [facility] thyroid stimulating hormone, serum 2.300 u[IU]/mL [facility] alanine aminotransferase (SGPT), serum 30 1/L [facility] aspartate aminotransferase (SGOT), serum 23 1/L [facility] creatinine, serum 0.80 mg/dL [facility] potassium, serum 4.7 mmol/L [facility] sodium, serum 138 mmol/L [facility] prothrombin time (patient) 9.7 [facility] Normal international normalized ratio (INR) 0.9 [facility] Normal basophils as percent of blood leukocytes 0.5 % [facility] Normal eosinophils as percent of blood [...] Normal Absolute Neutrophil count 3825 cells/mcL [facility] 3000-4008 Normal platelet count 337 THOUSAND/UL [facility] 140-400 [...] Hutson RN social history reviewed E&M reviewed Bretin Hutson RN social history reviewed E&M reviewed [...] Payer name Policy type / Coverage type [facility] Other [id number] TREATMENT PLAN Date Name Performer f/u: H [...] ..... One tab. daily Orders: E KG (CPT-13525) C ardiac Cath - CNE (*) BP [...]
== END 2024-11-25 09:40 | disposition home or self-care (01) ==
PROVIDERS: PCP Family Medicine; Visit Provider Physician Assistant
DX: Z12.31 Encounter for screening mammogram for malignant neoplasm of breast (principal); M81.0 Age-related osteoporosis without current pathological fracture; M85.88 Other specified disorders of bone density and structure, other site
CPT/HCPCS: 77063; 77067; 77080

== ENCOUNTER 2025-02-24 07:29 | Outpatient (CLI) | payer OTHER, SELFPAY ==
--- OUTSIDE RECORDS SUMMARY | 2008-01-10 08:22 | XMS_ITS | Continuity of Care Document ---
Author Organization [facility] Address [address] [place] [address] Phone Care Team Providers Care Inventory Specialist Manager Name Role Phone Gonsalo Ahn Unavailable Unavailable Procedures Procedure Date Office/outpatient Visit, Est Ophthalmoscopy, Subsequent Ophthalmoscopy, Subsequent Eye Exam Established Pt Ophthalmoscopy, Subsequent Ophthalmoscopy, Subsequent Eye Exam Established Pt Ophthalmoscopy, Subsequent Ophthalmoscopy, Subsequent Office/outpatient Visit, Est Eye Exam Established Pt Ophthalmoscopy, Subsequent Eye Exam Established Pt Ophthalmoscopy, Subsequent Office/outpatient Visit, Est Ophthalmoscopy, Subsequent Advance Directives Directive Yes / No Effective Date File Name No Information Encounters Encounter Description Practice Location Reason(s) For Visit Diagnoses Date Provider Providers Copied on Encounter Office/outpat ient Visit, Est [facility], [address] [place] [address] [address], [place], [place], [id number], [place] tel:[phone] [facility] No Information 8 Anabelle Brush. [address] [place], [address], [place]. tel:[phone] [facility], [address], [place], [place], [id number], [place] tel:[phone] [facility] No Information 8 Ahn Gonsalo. [address] [place], [address], [place]. tel:[phone] [facility], [address], [place], [place], [id number], [place] tel:[phone] [facility] No Information Bertin-0 7-200 8 Ahn Gonsalo. [address] [place], [address], [place]. tel:[phone] Office[facility]pat ient [facility], Est [facility], [address], [place], [place], [id number], [place] tel:[phone] [facility] No Information May-2 6-200 7 Radha Mary. [address], [place], [address], [place]. tel:[phone] [facility], [address], [place], [place], [id number], [place] tel:[phone] [facility] No Information Dec-2 3-200 7 Anabelle Brush. [address] [place], [address], [place]. tel:[phone] [facility], [address], [place], [place], [id number], [place] tel:[phone] [facility] No Information Sep-2 3-200 7 Anabelle Brush. [address] [place], [address], [place]. tel:[phone] Office/outpat ient Visit, Est [facility], [address], [place], [place], [id number], [place] tel:[phone] [facility] No Information Bertin-2 9-200 7 Anbaelle Brush. [address] [place], [address], [place]. tel:[phone] Family History Family Member Type Diagnosis Age At Onset No Information Payers Payer name Insurance type Covered constitution party ID Authoriza tielyssa(s) No Information Social History Type Description Quantity Date Captured Comments Sex Female Smoking Status No Information Chief Complaint And Reason For Visit No Information Reason For Referral Reason For Referral No Information History Of Present Illness Encounter Date Complaint History Of Prese nt Illness No Information Functional Status Date Functional Assessmen t No Information Instructions Date Instruction Additional Infor mation No Information Assessments Type Assessment Date No Information Patient Care Teams Name Effective Dates (start - stop) Status Members No Information
--- OUTSIDE RECORDS SUMMARY | 2025-02-24 07:45 | XMS_ITS | Clinical Summary ---
Author Organization [facility] [address] Address [address] [place] [address] Care Team Providers Care Railroad Dispatcher Name Role Phone Tano Rahman MD Primary [...] 1 tablet (75 mcg total) by mouth oncology consultant before breakfast Active pidqfgkn23-ugzp -Lmfolate-algal 27 mg iron-1.13 mg-581.92 mg capsule Take by mouth Active lisinopriL (PRINIVIL,ZESTR [place]) 40 mg tablet Take 1 tablet (40 mg total) by mouth daily 3 Active rOPINIRole (REQUIP) 1 mg tablet Take 1 tablet (1 mg total) by mouth 2 (two) times a day 4 Active gabapentin (NEURONTIN) 100 mg capsule Take 2 capsules (200 mg total) by mouth 2 (two) times a day 4 Active amLODIPine (NORVASC) 5 mg tablet TAKE 1 TABLET (5 MG TOTAL) BY MOUTH DAILY. 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 S/P coronary artery stent placement 08/23/2017 Dizziness 03/15/2016 Overview (09/22/2016): Dizziness Old myocardial infarction 06/01/2015 Overview (09/22/2016): H/O myocardial infarction of inferior wall, greater than 8 weeks Hypertension 06/01/2015 Overview (09/22/2016): Uncontrolled hypertension Coronary artery disease invo lving [place] coronary artery of [place] heart without angina pectoris 06/01/2015 Overview (09/22/2016): Coronary artery disease involving [place] coronary artery of [place] heart without angina pectoris Resolved Problems Problem [...] on file 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
[2025-02-24 07:55] LABS: Hematocrit 40.8 % (37.0-47.0); Hemoglobin 13.7 g/dL (12.0-15.0); Mean Corpuscular HGB Conc 33.6 g/dl (32-36); Mean Corpuscular Hemoglobin 32.9 pg (26-34); Mean Corpuscular Volume 97.8 fl (80-100); Platelet Count Result 307 k/mm3 (150-375); Red Blood Count 4.17 M/mm3 (4.2-5.4); White Blood Count 8.1 K/mm3 (4.5-10.0)
[2025-02-24 08:15] LABS: Add Urine Microscopic? YES; Appearance Urine Clear (Clear); Glucose Urine UA Negative (Negative); Leukocyte Esterase Ur 2+ LEU/UL (Negative); Nitrate Urine Negative (Negative); Non Pathogenic Casts 0-2; Specific Grav Ur 1.011 (1.001-1.035)
[2025-02-24 08:17] LABS: Alanine Aminotransferase 21 U/L (6-35); Albumin Level 4.1 g/dL (3.5-5.1); Alkaline Phosphatase 71 U/L (38-126); Anion Gap 5 mmol/L (4-12); Aspartate Amino Transferase 35 U/L (14-36); Bilirubin,Total 0.7 mg/dL (0.2-1.3); Blood Urea Nitrogen 10 mg/dL (7-17); Calcium 9.1 mg/dL (8.4-10.2); Carbon Dioxide 29 mmol/L (22-30); Chloride 97 mmol/L (98-107); Cholesterol 122 mg/dL (0-200); Estimated Glomerular Filt Rate > 60; Glucose 90 mg/dL (65-110); HDL Direct 59 mg/dL; Potassium 4.8 mmol/L (3.4-5.0); Sodium 131 mmol/L (137-145); Total Protein 6.7 g/dL (6.3-8.2); Triglycerides 61 mg/dL (<150)
[2025-02-24 08:53] LABS: Thyroid Stimulating Hormone 1.100 uIU/mL (0.465-4.680)
[2025-02-24 08:57] LABS: MALB Creatinine Ratio 16.5 mg/g (0-30)
[2025-02-24 09:04] LABS: Hemoglobin A1C 6.3 % (<5.7)
== END 2025-02-24 07:30 | disposition home or self-care (01) ==
PROVIDERS: PCP Family Medicine; Visit Provider Physician Assistant
DX: E11.29 Type 2 diabetes mellitus with other diabetic kidney complication (principal); I13.10 Hypertensive heart and chronic kidney disease without heart failure, with stage 1 through stage 4 chronic kidney disease, or unspecified chronic kidney disease; N18.30 Chronic kidney disease, stage 3 unspecified; E03.9 Hypothyroidism, unspecified; E87.1 Hypo-osmolality and hyponatremia; I25.10 Atherosclerotic heart disease of native coronary artery without angina pectoris; G25.81 Restless legs syndrome
CPT/HCPCS: 36415; 80053; 80061; 81001; 82043; 83036; 84443; 85027